=== PATIENT | male | born 1950 | race Caucasian/White ===

== ENCOUNTER → 2017-07-23 | Outpatient (CLI) | payer MEDICARE, OTHER ==
--- NOTE | 2017-07-23 12:20 | Diagnostic Imaging Report ---
PROCEDURE: CT chest without contrast. TECHNIQUE: Multiple contiguous axial images were obtained through the chest without the use of intravenous contrast. INDICATION: COPD, tobacco use. FINDINGS: The previous CT chest exam performed on 04/01/2016 noted emphysematous changes involving both lungs but failed to show any sign of an acute abnormality. The emphysematous changes are again evident and essentially no different. There is no sign of failure, pneumonia, or pleural effusion to indicate an acute abnormality. There are two small (2 mm) parenchymal opacities in the right mid lung (images 30 and 31 of 65). These findings are of uncertain etiology although most likely benign. In reviewing the previous exam, I feel they were present and have not changed significantly. There is no other parenchymal abnormality identified. The prior exam did note a 1.1 cm pretracheal lymph node. That finding is again evident on this study and now measures 0.9 cm. There is no other mediastinal or hilar adenopathy appreciated although this exam is limited in the evaluation of adenopathy due to the absence of intravenous contrast. The heart size is within normal limits. Coronary artery calcifications are evident. The aorta is not abnormally dilated. The thyroid gland where visualized is unremarkable. The sections through the upper abdomen fail to show any sign of an acute abnormality. The bone windows show no evidence for a fracture or for a destructive lesion. IMPRESSION: 1. The emphysematous changes involving both lungs seen on the prior study are again evident and no different. There is no sign of an acute cardiopulmonary abnormality. 2. The two small faint parenchymal opacities in the right mid lung are of uncertain etiology although most likely benign. A follow-up CT chest exam in one year would be recommended for continued evaluation. 3. The heart is not enlarged. There are coronary artery calcifications evident. Dictated by: Dictated on workstation # [id number]
== END ==
LOC: RAD 10:51
PROVIDERS: ATTEND Nurse Practitioner Family
DX: J43.9 Emphysema, unspecified (principal); E88.01 Alpha-1-antitrypsin deficiency; R59.0 Localized enlarged lymph nodes; Z72.0 Tobacco use
CPT/HCPCS: 71250

== ENCOUNTER 2017-09-01 09:11 | Outpatient (RCR) | payer MEDICARE, OTHER ==
[2017-09-30 13:53] VITALS: BP 117/70
[2017-09-30 14:58] VITALS: BP 118/80
[2017-10-02 14:50] VITALS: BP 110/64
[2017-10-02 16:00] VITALS: BP 120/60
[2017-10-07 15:00] VITALS: BP 120/60
[2017-10-07 16:00] VITALS: BP 130/70
[2017-10-09 13:45] VITALS: BP 102/77
[2017-10-09 15:00] VITALS: BP 115/67
[2017-10-14 14:50] VITALS: BP 130/60
[2017-10-14 16:02] VITALS: BP 116/60
[2017-10-23 15:00] VITALS: BP 118/80
[2017-10-23 16:00] VITALS: BP 118/50
[2017-10-28 14:35] VITALS: BP 140/70
[2017-10-30 15:00] VITALS: BP 97/64
[2017-10-30 15:55] VITALS: BP 120/77
[2017-11-04 15:00] VITALS: BP 114/66
[2017-11-04 15:57] VITALS: BP 130/60
[2017-11-11 15:00] VITALS: BP 120/84
[2017-11-11 15:41] VITALS: BP 120/58
[2017-11-13 15:00] VITALS: BP 122/74
[2017-11-13 16:00] VITALS: BP 122/74
[2017-11-20 15:00] VITALS: BP 120/60
[2017-11-20 15:34] VITALS: BP 150/60
[2017-11-25 14:50] VITALS: BP 118/60
[2017-11-25 15:49] VITALS: BP 120/60
[2017-11-27 14:52] VITALS: BP 115/60
[2017-12-02 15:00] VITALS: BP 104/65
[2017-12-02 16:00] VITALS: BP 125/60
== END 2017-11-30 | disposition home or self-care (01) ==
LOC: RT 09:11
PROVIDERS: ATTEND Internal Medicine Critical Care Medicine
DX: J44.9 Chronic obstructive pulmonary disease, unspecified (principal); R06.02 Shortness of breath; G47.36 Sleep related hypoventilation in conditions classified elsewhere; E66.9 Obesity, unspecified
CPT/HCPCS: 99211

== ENCOUNTER 2017-12-01 08:00 | Outpatient (RCR) | payer MEDICARE, OTHER ==
[2017-12-04 14:40] VITALS: BP 114/60
[2017-12-04 15:40] VITALS: BP 90/50
[2017-12-09 13:58] VITALS: BP 115/60
[2017-12-09 14:30] VITALS: BP 160/60
== END 2018-03-01 | disposition home or self-care (01) ==
LOC: PULM 08:00
PROVIDERS: ATTEND Internal Medicine Critical Care Medicine
DX: J44.9 Chronic obstructive pulmonary disease, unspecified (principal); R06.02 Shortness of breath; G47.36 Sleep related hypoventilation in conditions classified elsewhere; E66.9 Obesity, unspecified

== ENCOUNTER 2018-06-24 11:33 | Inpatient (IN) | payer MEDICARE, OTHER ==
[~2018-06-24] VITALS: Ht 167.6 cm; Wt 95.7 kg
[2018-06-24 11:48] VITALS: BP 116/73
--- NOTE | 2018-06-24 11:48 | NUR ---
NEETU CARRERO admitted to room 415-1, with an admitting diagnosis of COPD EXAC R/O PNEUMONIA, on 06/24/18 from [facility] , accompanied by STAFF/.NEETU CARRERO introduced to surroundings, call light, bed controls, phone, TV, temperature control, lights, meal times, smoking policy, visitor policy, side rail policy, bathrooms and showers. Patient Rights given to patient in the handbook. NEETU CARRERO verbalizes understanding that [facility] is not responsible for the loss or damage to any personal effects or valuables that are kept in the patients posession during their hospitalization. The following Patient Care Plans were discussed with the PT: Discharge Planning, IMPAIRED BREATHING PATTERN,INEFFECTIVE AIRWAY CLEARANCE, and IMPAIRED GAS EXCHANGE. NEETU CARRERO verbalizes understanding of Interdisciplinary Patient Education. Patient and family were informed about the Rapid Response Team and its purpose.
--- OUTSIDE RECORDS SUMMARY | 2018-06-24 12:55 | XMS REPORT | CCD ---
Author Author ASHLEY CRUZ Unknown Address [address] [facility] [address] [place], [place] [id number] Care Team Providers Care Tanyard Worker Name Role Phone VANESSA REID DO Leidy Attphys Vital Signs Vital Sign Value Unit Date/Time Recent/Initial? Weight Measured 188 lbs 12/01/2015 13:38 Initial VS Height 66 in 12/01/2015 13:38 Initial VS BMI (Body Mass Index) 30.02 kg/m^2 12/01/2015 13:38 Initial VS BSA (Body Surface Area) 1.99 m^2 12/01/2015 13:38 Initial VS Allergies Allergy Code Allergy Type Reaction Status No Known Allergies 0 No known allergies Active Procedures Procedure Code Procedure Type Date Destruction, premalignant lesions; first lesion 61559 CPT 12/04/2015 Destruction, premalignant lesions; second through 14 lesions, each 44379 CPT 12/04/2015 Destruction, premalignant lesions; second through 14 lesions, each 99358 CPT 12/04/2015 Destruction, premalignant lesions; second through 14 lesions, each 72564 CPT 12/04/2015 Destruction, premalignant lesions; second through 14 lesions, each 21935 CPT 12/04/2015 Esophagogastroduodenoscopy, flexible, transoral; [place] [address] CPT 12/04/2015 Colsc flx w/rmvl of tumor polyp lesion snare tq; [place] [address] CPT 12/04/2015 PATHOLOGY ORDER [id number] SNOMED CT 12/04/2015 History of Immunizations Unknown or Not Available. Problems Problem Code Start Date Resolved Date Status PNEUMONIA 486 Active PYELONEPHRITIS [id number] Active Results Unknown or Not Available. Active Medications No Active Medications Medications Administered During Visit Unknown or Not Available. Encounters Encounter Diagnosis Diagnosis Code Start Date Encounter for screening for malignant neoplasm of colon Z1211 Social History Smoking Status Code Start Date End Date Current every day smoker [id number] Patient Decision Aids Patient Decision Aid EGD AND/OR COLONOSCOPY; AFTER THE PROCEDURE Discharge Instructions You were admitted to [facility] on 12/04/2015 07:00 with a principal diagnosis of Encounter for screening for malignant neoplasm of colon You had the following procedures done: Destruction, premalignant lesions; first lesion Destruction, premalignant lesions; second through 14 lesions, each Destruction, premalignant lesions; second through 14 lesions, each Destruction, premalignant lesions; second through 14 lesions, each Destruction, premalignant lesions; second through 14 lesions, each Esophagogastroduodenoscopy, flexible, transoral; with biopsy, single or mu Colsc flx w/rmvl of tumor polyp lesion snare tq; (-PT Clrctal screen to di You were discharged from [facility] on 12/04/2015 10:40 Should you have any questions prior to discharge, please contact a member of your healthcare team. If you have left the hospital and have any questions, please contact your primary care physician. Chief Complaint and Reason For Visit Chief Complaint Date of Onset GEN EGD CSCOPE Function Status Unknown or Not Available. Plan of Care Unknown or Not Available. Referral/Transition of Care Unknown or Not Available.
--- OUTSIDE RECORDS SUMMARY | 2018-06-24 12:56 | XMS REPORT | Continuity of Care Document ---
Author Author [facility] Organization [facility] Address Unknown Phone Unavailable Allergies Active Description Code Type Severity Reaction Onset Reported/Identified Relationship to Patient Clinical Status Yes No Known Allergies [id number] N /A N/A Yes No Allergy Information Available [id number] Drug Allergy Unknown N/A 2015 Medications There is no data. Problems Date Dx Coded Attending Type Code Diagnosis Diagnosed By 10/12/2015 DIOR MORGAN DO, Ot E88.01 [id number]-2-[id number] DEFICIENCY 10/12/2015 DIOR MORGAN DO Ot J44.9 CHRONIC OBSTRUCTIVE PULMONARY DISEASE, U 10/12/2015 DIOR MORGAN DO Ot Z72.0 TOBACCO USE 10/16/2015 MARTIN ZHENG LAND INSPECTOR Ot G47.10 HYPERSOMNIA, UNSPECIFIED 10/16/2015 MARTIN ZHENG LAND INSPECTOR Ot G47.33 OBSTRUCTIVE SLEEP APNEA (ADULT) (PEDIATR 10/17/2015 ADRIENNE ZHENGINE E LAND INSPECTOR Ot G47.10 HYPERSOMNIA, UNSPECIFIED 10/17/2015 NORMADRIENNEMARTIN E LAND INSPECTOR Ot G47.33 OBSTRUCTIVE SLEEP APNEA (ADULT) (PEDIATR 10/17/2015 MARTIN ZHENG LAND INSPECTOR Ot G47.36 SLEEP RELATED HYPOVENTILATION IN CONDITI 10/17/2015 MARTIN ZHENG LAND INSPECTOR Ot G47.61 PERIODIC LIMB MOVEMENT DISORDER 10/17/2015 MARTIN ZHENG LAND INSPECTOR Ot G47.9 SLEEP DISORDER, UNSPECIFIED 10/17/2015 MARTIN ZHENG LAND INSPECTOR Ot R06.83 SNORING 11/02/2015 MARTIN ZHENG LAND INSPECTOR Ot G47.36 SLEEP RELATED HYPOVENTILATION IN CONDITI 11/02/2015 MARTIN ZHENG LAND INSPECTOR Ot G47.61 PERIODIC LIMB MOVEMENT DISORDER 11/02/2015 MARTIN ZHENG LAND INSPECTOR Ot R06.83 SNORING 04/01/2016 DIOR MORGAN DO Ot E88.01 TWLVB-3-CJGCAGTHPPG DEFICIENCY 04/01/2016 DIOR MORGAN DO Ot J44.9 CHRONIC OBSTRUCTIVE PULMONARY DISEASE, U 04/01/2016 DIOR MORGAN DO Ot Z72.0 TOBACCO USE 04/01/2016 DIOR MORGAN DO Ot E88.01 LLWTI-7-ZTEIAEAWMZH DEFICIENCY 04/01/2016 DIOR MORGAN DO Ot J44.9 CHRONIC OBSTRUCTIVE PULMONARY DISEASE, U 04/01/2016 DIOR MORGAN DO Ot Z72.0 TOBACCO USE 04/01/2016 MARTIN ZHENG LAND INSPECTOR Ot J44.9 CHRONIC OBSTRUCTIVE PULMONARY DISEASE, U 04/01/2016 MARTIN ZHENG LAND INSPECTOR Ot J44.9 CHRONIC OBSTRUCTIVE PULMONARY DISEASE, U 04/01/2016 MARTIN ZHENG LAND INSPECTOR Ot J44.9 CHRONIC OBSTRUCTIVE PULMONARY DISEASE, U 04/02/2016 MARTIN ZHENG LAND INSPECTOR Ot J44.9 CHRONIC OBSTRUCTIVE PULMONARY DISEASE, U 04/02/2016 MARTIN ZHENG LAND INSPECTOR Ot J44.9 CHRONIC OBSTRUCTIVE PULMONARY DISEASE, U 04/02/2016 MARTIN ZHENG LAND INSPECTOR Ot R93.8 ABNORMAL FINDINGS ON DIAGNOSTIC IMAGING 04/02/2016 MARTIN ZHENG LAND INSPECTOR Ot Z72.0 TOBACCO USE 04/07/2016 MARTIN ZHENG LAND INSPECTOR Ot J44.9 CHRONIC OBSTRUCTIVE PULMONARY DISEASE, U 04/07/2016 MARTIN ZHENG LAND INSPECTOR Ot R93.8 ABNORMAL FINDINGS ON DIAGNOSTIC IMAGING 04/07/2016 MARTIN ZHENG LAND INSPECTOR Ot Z72.0 TOBACCO USE 04/23/2016 MARTIN ZHENG LAND INSPECTOR Ot J44.9 CHRONIC OBSTRUCTIVE PULMONARY DISEASE, U 04/23/2016 MARTIN ZHENG LAND INSPECTOR Ot R93.8 ABNORMAL FINDINGS ON DIAGNOSTIC IMAGING 04/23/2016 MARTIN ZHENG LAND INSPECTOR Ot Z72.0 TOBACCO USE 07/24/2017 MARTIN ZHENG LAND INSPECTOR Ot E88.01 UIWMJ-9-RPBRVQIFWGA DEFICIENCY 07/24/2017 MARTIN ZHENG LAND INSPECTOR Ot J43.9 EMPHYSEMA, UNSPECIFIED 07/24/2017 MARTIN ZHENG LAND INSPECTOR Ot R59.0 LOCALIZED ENLARGED LYMPH NODES 07/24/2017 MARTIN ZHENG LAND INSPECTOR Ot Z72.0 TOBACCO USE 08/08/2017 MARTIN ZHENG LAND INSPECTOR Ot E88.01 SSXZB-3-KQIQWULYGOT DEFICIENCY 08/08/2017 MARTIN ZHENG LAND INSPECTOR Ot J43.9 EMPHYSEMA, UNSPECIFIED 08/08/2017 MARTIN ZHENG LAND INSPECTOR Ot R59.0 LOCALIZED ENLARGED LYMPH NODES 08/08/2017 MARTIN ZHENG LAND INSPECTOR Ot Z72.0 TOBACCO USE 08/18/2017 DIOR MORGAN DO Ot E88.01 LPNLX-6-DJKNPSAPTUQ DEFICIENCY 08/18/2017 DIOR MORGAN DO Ot J44.9 CHRONIC OBSTRUCTIVE PULMONARY DISEASE, U 08/18/2017 DIOR MORGAN DO Ot Z72.0 TOBACCO USE 08/18/2017 MARTIN ZHENG APRN Ot J44.9 CHRONIC OBSTRUCTIVE PULMONARY DISEASE, U 08/18/2017 MARTIN ZHENG LAND INSPECTOR Ot R93.8 ABNORMAL FINDINGS ON DIAGNOSTIC IMAGING 08/18/2017 MARTIN ZHENG LAND INSPECTOR Ot Z72.0 TOBACCO USE 08/18/2017 MARTIN ZHENG LAND INSPECTOR Ot E88.01 NSPYM-8-XWOJPGBXTQG DEFICIENCY 08/18/2017 MARTIN ZHENG LAND INSPECTOR Ot J43.9 EMPHYSEMA, UNSPECIFIED 08/18/2017 MARTIN ZHENG APRN Ot R59.0 LOCALIZED ENLARGED LYMPH NODES 08/18/2017 MARTIN ZHENG LAND INSPECTOR Ot Z72.0 TOBACCO USE 10/02/2017 DIOR MORGAN DO Ot E66.9 OBESITY, UNSPECIFIED 10/02/2017 DIOR MORGAN DO Ot G47.36 SLEEP RELATED HYPOVENTILATION IN CONDITI 10/02/2017 DIOR MORGAN DO Ot J44.9 CHRONIC OBSTRUCTIVE PULMONARY DISEASE, U 10/02/2017 DIOR MORGAN DO Ot R06.02 SHORTNESS OF BREATH 10/07/2017 DIOR MORGAN DO Ot E66.9 OBESITY, UNSPECIFIED 10/07/2017 DIOR MORGAN DO Ot G47.36 SLEEP RELATED HYPOVENTILATION IN CONDITI 10/07/2017 DIOR MORGAN DO Ot J44.9 CHRONIC OBSTRUCTIVE PULMONARY DISEASE, U 10/07/2017 DIOR MORGAN DO Ot R06.02 SHORTNESS OF BREATH 10/08/2017 CATHY DODIOR Ot E66.9 OBESITY, UNSPECIFIED 10/08/2017 DIOR MORGAN DO M Ot G47.36 SLEEP RELATED HYPOVENTILATION IN CONDITI 10/08/2017 CATHY DODIOR Ot J44.9 CHRONIC OBSTRUCTIVE PULMONARY DISEASE, U 10/08/2017 CATHY DODIOR M Ot R06.02 SHORTNESS OF BREATH 10/09/2017 CATHY DODIOR M Ot E66.9 OBESITY, UNSPECIFIED 10/09/2017 CATHY DODIOR M Ot G47.36 SLEEP RELATED HYPOVENTILATION IN CONDITI 10/09/2017 DIOR MORGAN DO Ot J44.9 CHRONIC OBSTRUCTIVE PULMONARY DISEASE, U 10/09/2017 DIOR MORGAN DO Ot R06.02 SHORTNESS OF BREATH 10/14/2017 DIOR MORGAN DO M Ot E66.9 OBESITY, UNSPECIFIED 10/14/2017 DIOR MORGAN DO M Ot G47.36 SLEEP RELATED HYPOVENTILATION IN CONDITI 10/14/2017 DIOR MORGAN DO Ot J44.9 CHRONIC OBSTRUCTIVE PULMONARY DISEASE, U 10/14/2017 CATHY DODIOR M Ot R06.02 SHORTNESS OF BREATH 10/23/2017 DIOR MORGAN DO M Ot E66.9 OBESITY, UNSPECIFIED 10/23/2017 CATHY DODIOR M Ot G47.36 SLEEP RELATED HYPOVENTILATION IN CONDITI 10/23/2017 DIOR MORGAN DO M Ot J44.9 CHRONIC OBSTRUCTIVE PULMONARY DISEASE, U 10/23/2017 DIOR MORGAN DO M Ot R06.02 SHORTNESS OF BREATH 10/28/2017 CATHY DODIOR M Ot E66.9 OBESITY, UNSPECIFIED 10/28/2017 CATHY DODIOR M Ot G47.36 SLEEP RELATED HYPOVENTILATION IN CONDITI 10/28/2017 CATHY DODIOR M Ot J44.9 CHRONIC OBSTRUCTIVE PULMONARY DISEASE, U 10/28/2017 CATHY DODIOR M Ot R06.02 SHORTNESS OF BREATH 10/30/2017 CATHY DODIOR M Ot E66.9 OBESITY, UNSPECIFIED 10/30/2017 CATHY DODIOR M Ot G47.36 SLEEP RELATED HYPOVENTILATION IN CONDITI 10/30/2017 DIOR MORGAN DO Ot J44.9 CHRONIC OBSTRUCTIVE PULMONARY DISEASE, U 10/30/2017 DIOR MORGAN DO Ot R06.02 SHORTNESS OF BREATH 10/30/2017 DIOR MORGAN DO Ot E66.9 OBESITY, UNSPECIFIED 10/30/2017 DIOR MORGAN DO Ot G47.36 SLEEP RELATED HYPOVENTILATION IN CONDITI 10/30/2017 DIOR MORGAN DO Ot J44.9 CHRONIC OBSTRUCTIVE PULMONARY DISEASE, U 10/30/2017 CATHY DODIOR M Ot R06.02 SHORTNESS OF BREATH 11/04/2017 DIOR MORGAN DO Ot E66.9 OBESITY, UNSPECIFIED 11/04/2017 DIOR MORGAN DO Ot G47.36 SLEEP RELATED HYPOVENTILATION IN CONDITI 11/04/2017 DIOR MORGAN DO Ot J44.9 CHRONIC OBSTRUCTIVE PULMONARY DISEASE, U 11/04/2017 DIOR MORGAN DO Ot R06.02 SHORTNESS OF BREATH 11/11/2017 DIOR MORGAN DO Ot E66.9 OBESITY, UNSPECIFIED 11/11/2017 DIOR MORGAN DO M Ot G47.36 SLEEP RELATED HYPOVENTILATION IN CONDITI 11/11/2017 DIOR MORGAN DO Ot J44.9 CHRONIC OBSTRUCTIVE PULMONARY DISEASE, U 11/11/2017 DIOR MORGAN DO Ot R06.02 SHORTNESS OF BREATH 11/13/2017 DIOR MORGAN DO Ot E66.9 OBESITY, UNSPECIFIED 11/13/2017 DIOR MORGAN DO M Ot G47.36 SLEEP RELATED HYPOVENTILATION IN CONDITI 11/13/2017 DIOR MORGAN DO Ot J44.9 CHRONIC OBSTRUCTIVE PULMONARY DISEASE, U 11/13/2017 CATHY DODIOR M Ot R06.02 SHORTNESS OF BREATH 11/20/2017 DIOR MORGAN DO M Ot E66.9 OBESITY, UNSPECIFIED 11/20/2017 DIOR MORGAN DO M Ot G47.36 SLEEP RELATED HYPOVENTILATION IN CONDITI 11/20/2017 DIOR MORGAN DO Ot J44.9 CHRONIC OBSTRUCTIVE PULMONARY DISEASE, U 11/20/2017 DIOR MORGAN DO M Ot R06.02 SHORTNESS OF BREATH 11/25/2017 DIOR MORGAN DO M Ot E66.9 OBESITY, UNSPECIFIED 11/25/2017 CATHY DODIOR M Ot G47.36 SLEEP RELATED HYPOVENTILATION IN CONDITI 11/25/2017 CATHY DODIOR Ot J44.9 CHRONIC OBSTRUCTIVE PULMONARY DISEASE, U 11/25/2017 CATHY DODIOR M Ot R06.02 SHORTNESS OF BREATH 11/27/2017 CATHY DODIOR M Ot E66.9 OBESITY, UNSPECIFIED 11/27/2017 CATHY DODIOR M Ot G47.36 SLEEP RELATED HYPOVENTILATION IN CONDITI 11/27/2017 CATHY DODIOR Ot J44.9 CHRONIC OBSTRUCTIVE PULMONARY DISEASE, U 11/27/2017 DIOR MORGAN DO M Ot R06.02 SHORTNESS OF BREATH 11/30/2017 CATHY DODIOR M Ot E66.9 OBESITY, UNSPECIFIED 11/30/2017 CATHY DODIOR M Ot G47.36 SLEEP RELATED HYPOVENTILATION IN CONDITI 11/30/2017 DIOR MORGAN DO Ot J44.9 CHRONIC OBSTRUCTIVE PULMONARY DISEASE, U 11/30/2017 CATHY DODIOR M Ot R06.02 SHORTNESS OF BREATH 12/03/2017 CATHY DODIOR M Ot E66.9 OBESITY, UNSPECIFIED 12/03/2017 CATHY DODIOR M Ot G47.36 SLEEP RELATED HYPOVENTILATION IN CONDITI 12/03/2017 DIOR MORGAN DO M Ot J44.9 CHRONIC OBSTRUCTIVE PULMONARY DISEASE, U 12/03/2017 DIOR MORGAN DO M Ot R06.02 SHORTNESS OF BREATH 12/04/2017 CATHY DODIOR M Ot E66.9 OBESITY, UNSPECIFIED 12/04/2017 CATHY DODIOR M Ot G47.36 SLEEP RELATED HYPOVENTILATION IN CONDITI 12/04/2017 CATHY DODIOR M Ot J44.9 CHRONIC OBSTRUCTIVE PULMONARY DISEASE, U 12/04/2017 CATHY DODIOR M Ot R06.02 SHORTNESS OF BREATH 12/09/2017 CATHY DODIOR M Ot E66.9 OBESITY, UNSPECIFIED 12/09/2017 CATHY DODIOR M Ot G47.36 SLEEP RELATED HYPOVENTILATION IN CONDITI 12/09/2017 CATHY DODIOR M Ot J44.9 CHRONIC OBSTRUCTIVE PULMONARY DISEASE, U 12/09/2017 DIOR MORGAN DO M Ot R06.02 SHORTNESS OF BREATH 01/04/2018 CATHY DODIOR M Ot E66.9 OBESITY, UNSPECIFIED 01/04/2018 CATHY DOKAISERDIOR M Ot G47.36 SLEEP RELATED HYPOVENTILATION IN CONDITI 01/04/2018 DIOR MORGAN DO M Ot J44.9 CHRONIC OBSTRUCTIVE PULMONARY DISEASE, U 01/04/2018 DIOR MORGAN DO M Ot R06.02 SHORTNESS OF BREATH 03/01/2018 CATHY DODIOR M Ot E66.9 OBESITY, UNSPECIFIED 03/01/2018 CATHY DODIOR M Ot G47.36 SLEEP RELATED HYPOVENTILATION IN CONDITI 03/01/2018 DIOR MORGAN DO M Ot J44.9 CHRONIC OBSTRUCTIVE PULMONARY DISEASE, U 03/01/2018 DIOR MORGAN DO M Ot R06.02 SHORTNESS OF BREATH 03/03/2018 DIOR MORGAN DO M Ot E66.9 OBESITY, UNSPECIFIED 03/03/2018 KAISER MORGAN DOSON M Ot G47.36 SLEEP RELATED HYPOVENTILATION IN CONDITI 03/03/2018 DIOR MORGAN DO M Ot J44.9 CHRONIC OBSTRUCTIVE PULMONARY DISEASE, U 03/03/2018 DIOR MORGAN DO M Ot R06.02 SHORTNESS OF BREATH 03/10/2018 MARTIN ZHENG APRN Ot E88.01 IAJVH-2-HCEZLGOLZMO DEFICIENCY 03/10/2018 MARTIN ZHENG APRN Ot J43.9 EMPHYSEMA, UNSPECIFIED 03/10/2018 MARTIN ZHENG APRN Ot R59.0 LOCALIZED ENLARGED LYMPH NODES 03/10/2018 MARTIN ZHENG APRN Ot Z72.0 TOBACCO USE Procedures There is no data. Results Test Result Range [id number] - 04/01/16 10:48 Serum or plasma urea nitrogen measurement (mass/volume) 14 mg/dL 7-18 Serum or plasma creatinine measurement (mass/volume) 1.06 mg/dL 0.60-1.30 Serum or plasma urea nitrogen/creatinine mass ratio 13 NRG Serum or plasma creatinine measurement with calculation of estimated glomerular filtration rate > NRG Encounters ACCT No. Visit Date/Time Discharge Status Pt. Type Provider Facility Loc./Unit Complaint [id number] 03/02/2018 00:08:00 03/02/2018 23:59:59 CLS Preadmit CATHY DOBSON DIOR M [facility] PULM J44.9 [id number] 12/01/2017 08:00:00 03/01/2018 00:01:00 DIS Outpatient DIOR MORGAN DO [facility] PULM J44.9 [id number] 09/01/2017 09:11:00 11/30/2017 00:01:00 DIS Outpatient DIOR MORGAN DO [facility] PULM J44.9 [id number] 07/31/2017 11:33:00 07/31/2017 23:59:59 CLS Preadmit DIOR MORGAN DO [facility] RAD J44.9 [id number] 07/23/2017 10:51:00 07/23/2017 23:59:59 CLS Outpatient MARTIN ZHENG APRN [facility] RAD COPD,TOBACCO USER [id number] 04/01/2016 10:39:00 04/01/2016 23:59:59 CLS Outpatient MARTIN ZHENG LAND INSPECTOR [facility] RAD COPD,TOBACCO USER, ABNORMAL CT [id number] 10/16/2015 21:29:00 10/17/2015 06:00:00 DIS Outpatient MARTIN ZHENG APRN [facility] SLEEP BERNADETTE,SNORING, HYPERSOMNIA,MORNING HEADACHE [id number] 09/22/2015 13:00:00 09/22/2015 23:59:59 CLS Outpatient DIOR MORGAN DO [facility] RAD SOA,DYSPNEA,COPD [id number] 04/03/2018 01:50:01 Document Registration [id number] 03/20/2018 08:36:37 Document Registration [id number] 03/12/2018 16:37:22 Document Registration [id number] 03/11/2018 15:46:02 Document Registration [id number] 01/07/2018 15:42:26 Document Registration [id number] 01/07/2018 08:43:18 Document Registration [id number] 12/15/2017 14:48:21 Document Registration
[2018-06-24] MEDS ORDERED: NS IV 1000 ML 1,000 ML ONE (13:12)
[2018-06-24] MEDS ORDERED: CATHETER FLUSH 10 ML SYR IV PRN (13:30)
[2018-06-24] MEDS ORDERED: FLU QUADRIvalent (5+ YOA) 2018-2019 (AFLURIA) 0.5 ML IM ONE (13:30)
--- NOTE | 2018-06-24 13:55 | History & Physical-Hospitalist ---
ALLYN BROWNE DO 06/24/18 1355: History of Present Illness HPI/Chief Complaint CC: Dyspnea HPI: This is a 67-year-old white male that was seen as a new patient by Dr. Diaz's office that was found to have severe acute exacerbation of COPD in need of hospitalization with IV steroids nebulizer treatments and oxygen supplementation. Apparently he had completed 2 rounds of antibiotics of Rocephin and Levaquin and injection of steroids and pills of steroids but continued to worsen. He reports that he has not been feeling well for the past 3 months. He is upset with his for forcing him to come into the hospital. Overall he understands the plan for oxygen supplementation and likely will need to go home on oxygen. Smoking cessation was counseled. Source: patient, family Date Seen 06/24/18 Time Seen by a Provider: 14:15 Attending Physician Allyn Browne DO PCP Gamaliel Hubbard MD Referring Physician Date of Admission Jun 24, 2018 at 11:48 Home Medications & Allergies Home Medications Reviewed patient Home Medication Reconciliation performed by pharmacy medication reconciliations smog technician and/or nursing. Patients Allergies have been reviewed. Allergies Allergies Coded Allergies No Known Drug Allergies (Unverified06/24/18) Past Mklymsa-Swnqgk-Udvkzh Hx Past Med/Social Hx: Reviewed Nursing Past Med/Soc Hx, Reviewed and Corrections made Patient Social History Marrital Status: Employed/Student: retired (sandblaster) Alcohol Use: Occasionally Uses Number of Drinks Today: 0 Alcohol Beverage of Choice: Whiskey Recreational Drug Use: No Smoking Status: Current Everyday Smoker Type Used: Cigarettes Physical Abuse Screen: No Sexual Abuse: No Recent Foreign Travel: No Contact w/other who traveled: No Recent Hopitalizations: No Recent Infectious Disease Expo: No Seasonal Allergies Seasonal Allergies: Yes Past Medical History Respiratory: COPD Currently Using CPAP: No Currently Using BIPAP: No Gastrointestinal: Abdominal Hernia History of Blood Disorders: No Family History Dementia 19 MOTHER Neoplasm 19 FATHER Review of Systems Constitutional: see HPI, weakness EENTM: no symptoms reported Respiratory: cough, dyspnea on exertion, short of breath Cardiovascular: no symptoms reported Gastrointestinal: no symptoms reported Genitourinary: no symptoms reported Musculoskeletal: no symptoms reported Skin: no symptoms reported Psychiatric/Neurological: No Symptoms Reported All Other Systems Reviewed Negative Unless Noted: Yes Physical Exam Physical Exam Vital Signs Vital Signs - First Documented 06/24/18 06/24/18 11:48 14:18 Temp 98.6 Pulse 97 Resp 22 B/P (MAP) 116/73 (87) Pulse Ox 95 O2 Delivery Room Air O2 Flow Rate 2.00 Capillary Refill : Height, Weight, BMI Height: 5'6.00" Weight: 198lbs. 4.0oz. [id number]; 32.0 BMI Method: General Appearance: WD/WN, Anxious, Chronically ill, Mild Distress Eyes: Bilateral Eye Normal Inspection, Bilateral Eye PERRL HEENT: PERRL/EOMI, Normal ENT Inspection, Pharynx Normal Neck: Full Range of Motion, Normal Inspection, Non Tender, Supple, Carotid Bruit Respiratory: Chest Non Tender, Accessory Muscle Use, Crackles, Decreased Breath Sounds, Respiratory Distress (mild), Wheezing (diffuse expiratory) Cardiovascular: Regular Rate, Rhythm, No Edema, No Gallop, No JVD, No Murmur, Normal Peripheral Pulses Gastrointestinal: Normal Bowel Sounds, No Organomegaly, No Pulsatile Mass, Non Tender, Soft Back: Normal Inspection, No CVA Tenderness, No Vertebral Tenderness Extremity: Normal Capillary Refill, Normal Inspection, Normal Range of Motion, Non Tender, No Calf Tenderness, No Pedal Edema Neurologic/Psychiatric: Alert, Oriented x3, No Motor/Sensory Deficits, Normal Mood/Affect Skin: Normal Color, Warm/Dry Lymphatic: No Adenopathy Results Results/Procedures Labs Laboratory Tests 06/24/18 13:50 Patient resulted labs reviewed. Assessment/Plan Admission Diagnosis Assessment: Acute exacerbation of COPD new onset Current smoker Appears to be at risk for obstructive sleep apnea Plan: Pulmonary meds Oxygen Admission Status: Inpatient Order (span 2 midnights) Reason for Inpatient Admission: AECOPD will require 3 days of IV steroids and home O2 Diagnosis/Problems Diagnosis/Problems (1) COPD exacerbation Status: Acute (2) Smoker Status: Chronic Clinical Quality Measures DVT/VTE Risk/Contraindication: Risk Factor Score Per Nursin RFS Level Per Nursing on Admit: 4+=Very High BRENDAN HORNE MEDICAL STUDENT 06/24/18 1403: History of Present Illness HPI/Chief Complaint CC: SOB HPI: 67 year old male with Hx of COPD admitted for SOB. Pt states that he was Dx with PNA 6-8 weeks ago by his PCP, given Levaquin, Rocephin IM, and IM steroid shot. Pt states he has continued to feel short of breath since then. Pt states that he has had dyspnea on exertion over the last 3 months that has been worsening and now he is unable to walk to the bathroom without becoming SOB. Pt states that he also has a cough that is worse in the morning and evening and sometimes he has episodes of coghing that leads to him passing out for a minute. Pt states his legs have also felt warm. Pt states that his resting heart rate has been ~100-105 over the last couple weeks. Pt states he has been taking breathing treatments 4-5x a day and says it helps a little bit. Source: patient, family Time Seen by a Provider: 13:45 Past Fkblgur-Xpdzeu-Mxjxev Hx Patient Social History Marrital Status: Family History Dementia 19 MOTHER Neoplasm 19 FATHER Review of Systems Constitutional: see HPI; No chills, No fever EENTM: see HPI Respiratory: cough, dyspnea on exertion, short of breath Cardiovascular: No chest pain Gastrointestinal: No abdominal pain, No diarrhea, No nausea, No vomiting Musculoskeletal: no symptoms reported Psychiatric/Neurological: No Symptoms Reported Physical Exam Physical Exam General Appearance: WD/WN, Mild Distress Eyes: Bilateral Eye EOMI HEENT: PERRL/EOMI Respiratory: Respiratory Distress (mild), Wheezing (diffuse expiratory) Cardiovascular: Tachycardia Gastrointestinal: Non Tender, Soft Neurologic/Psychiatric: Alert, Oriented x3, Normal Mood/Affect Assessment/Plan Admission Diagnosis Admission Status: Inpatient Order (span 2 midnights) Reason for Inpatient Admission: PNA Assessment and Plan Assessment PNA AECOPD DVT Tobacco use failed outpt therapy hypoxia History of HLD Plan CXR IV Abx IV Steroids US LE to check for DVT smoking cessation O2 Pulmonology consult ALLYN BROWNE DO Jun 24, 2018 13:55 BRENDAN HORNE MEDICAL STUDENT Jun 24, 2018 14:03
[2018-06-24 14:05] LABS: BASOPHILS % (AUTO) 1 % (0-10); EOSINOPHILS # (AUTO) 0.3 10^3/uL (0.0-0.3); EOSINOPHILS % (AUTO) 5 % (0-10); HEMATOCRIT 42 % (40-54); HEMOGLOBIN 13.7 G/DL (13.3-17.7); LYMPHOCYTES # (AUTO) 1.8 X 10^3 (1.0-4.0); LYMPHOCYTES % (AUTO) 28 % (12-44); MEAN CORPUSCULAR HEMOGLOBIN 30 PG (25-34); MEAN CORPUSCULAR HGB CONC 33 G/DL (32-36); MEAN CORPUSCULAR VOLUME 92 FL (80-99); MONOCYTES # (AUTO) 0.6 X 10^3 (0.0-1.0); MONOCYTES % (AUTO) 10 % (0-12); NEUTROPHILS # (AUTO) 3.7 X 10^3 (1.8-7.8); NEUTROPHILS % (AUTO) 57 % (42-75); PLATELET COUNT 187 10^3/uL (130-400); RED BLOOD COUNT 4.55 10^6/uL (4.35-5.85); RED CELL DISTRIBUTION WIDTH 13.3 % (10.0-14.5); WHITE BLOOD COUNT 6.6 10^3/uL (4.3-11.0)
[2018-06-24] MEDS: RT-ALBUTEROL/IPRATROPIUM 3 ML (DUONEB) VIAL IH SCH ×3 (14:17→22:45)
--- NOTE | 2018-06-24 14:17 | Diagnostic Imaging Report ---
INDICATION: Recent pneumonia and COPD. TIME OF EXAM: 1:40 PM COMPARISON: No prior chest radiographs are available for comparison. FINDINGS: The lungs are hyperinflated consistent with COPD. There is some linear atelectasis or scarring in the right base. Otherwise the lungs are clear. No effusion or pneumothorax is detected. IMPRESSION: COPD with right basilar scarring/subsegmental atelectasis. Dictated by: Dictated on workstation # [id number]
[2018-06-24 14:21] LABS: ABG OXYGEN SATURATION 97 % (94-100); ABG PCO2 47 MMHG (35-45); ABG PH 7.37 (7.37-7.43); ABG PO2 87 MMHG (79-93); ABG TCO2 28.2 MMOL/L (21.0-31.0)
[2018-06-24 14:22] LABS: ALLENS TEST YES-POS; INSPIRED O2 2L; PATIENT TEMP 98.6; VENTILATOR NO
[2018-06-24 14:23] LABS: ALBUMIN 4.1 GM/DL (3.2-4.5); BILIRUBIN,TOTAL 0.4 MG/DL (0.1-1.0); CALCIUM 9.1 MG/DL (8.5-10.1); CREATININE SERUM 1.24 MG/DL (0.60-1.30); POTASSIUM 4.3 MMOL/L (3.6-5.0); TOTAL PROTEIN 6.8 GM/DL (6.4-8.2)
[2018-06-24] MEDS: ENOXAPARIN 40 MG/0.4 ML (LOVENOX) SYR SC SCH (14:24)
[2018-06-24] MEDS: NS IV 1000 ML 1,000 ML IV SCH ×2 (14:24→22:07)
[2018-06-24] MEDS ORDERED: IOHEXOL 350 MG/ML 100 ML (OMNIPAQUE 350) VIAL IV ONE (15:00)
[2018-06-24] MEDS ORDERED: NS 250 ML (IVPB) BAG IV ONE (15:00)
[2018-06-24] MEDS ORDERED: RECEIVED CONTRAST (Hold Metformin) IV SCH (15:00)
[2018-06-24] MEDS ORDERED: BETA1TAB15 PO (15:15)
[2018-06-24] MEDS ORDERED: BUDE0.256 NEB (15:15)
[2018-06-24] MEDS ORDERED: ASPI-983 PO (15:15)
[2018-06-24] MEDS ORDERED: ALBU18HF2 INH (15:15)
[2018-06-24] MEDS ORDERED: LORA10TA7 PO (15:15)
[2018-06-24] MEDS ORDERED: IPRA3AMP31 NEB (15:15)
[2018-06-24] MEDS ORDERED: ARFO15VI3 NEB (15:15)
--- NOTE | 2018-06-24 15:17 | NUR ---
PATIENT LISTED HIS MEDICATIONS TO ME AND HOW HE TAKES THEM. SOME OF HIS NEBULIZER SOLUTIONS HAVE NOT BEEN FILLED RECENTLY ACCORDING TO THE EXT MED HX HOWEVER HE STATES THEY PUT IT ON AUTO REFILL AND SO HE HAD AN ABUNDANCE ON HAND AT HOME AND HAS BEEN USING THAT SUPPLY UP BEFORE ORDERING MORE REFILLS. HE TAKES ASPIRIN 81MG HS, PRESERVISION HS, AND LORATADINE HS OTC.
[2018-06-24 16:00] VITALS: BP 138/69
--- NOTE | 2018-06-24 16:06 | Diagnostic Imaging Report ---
PROCEDURE: CT chest with contrast only. TECHNIQUE: Multiple contiguous axial images were obtained through the chest after administration of intravenous contrast. INDICATION: Shortness of breath and COPD. Correlation is made with prior CT chest from 07/23/2017. FINDINGS: No axillary lymphadenopathy is seen. A right paratracheal node or two adjacent nodes again noted with short axis measurement of approximately 10 mm, similar to prior exam. No definite hilar lymphadenopathy is identified. No pericardial or pleural fluid is detected. Parenchymal evaluation again demonstrates emphysematous changes throughout both lungs. The central airways appear to be patent. Two tiny vague nodular densities in the right mid lung adjacent to the fissure, image 34 appear to be stable when compared with examination one year earlier. Remainder of the lung rowe is clear. No new mass is seen. Upper abdomen is unremarkable. IMPRESSION: Stable CT chest when compared with examination from 07/23/2017. Dictated by: Dictated on workstation # [id number]
--- NOTE | 2018-06-24 16:24 | Diagnostic Imaging Report ---
INDICATION: Shortness of breath. Bilateral lower extremity venous Doppler study was performed in the routine fashion with color flow Doppler and waveform analysis. FINDINGS: The common femoral veins, superficial femoral veins, popliteal veins and visualized portion of the tibial veins show normal compressibility and venous flow patterns. There is normal augmentation. A small 2.5 x 0.7 cm Isabel's cyst is visualized in the left popliteal fossa. IMPRESSION: No evidence of deep vein thrombosis in the major veins of both legs. Dictated by: Dictated on workstation # [id number]
[2018-06-24] MEDS ORDERED: HYDROcodone/APAP 5 MG/325 MG (LORTAB) TAB PO PRN (17:15)
[2018-06-24] MEDS ORDERED: DOCUSATE SODIUM 100 MG (COLACE) CAP PO PRN (17:15)
[2018-06-24] MEDS ORDERED: ACETAMINOPHEN 500 MG TAB (TYLENOL) PO PRN (17:15)
[2018-06-24] MEDS ORDERED: RT-ALBUTEROL/IPRATROPIUM 3 ML (DUONEB) VIAL INH PRN (17:15)
[2018-06-24] MEDS ORDERED: CALCIUM CARBONATE 500 MG (TUMS) TAB.CHEW PO PRN (17:15)
[2018-06-24] MEDS ORDERED: ALPRAZolam 0.25 MG (XANAX) TAB PO PRN (17:15)
[2018-06-24] MEDS ORDERED: MELATONIN 3 MG TABLET PO PRN (17:15)
[2018-06-24] MEDS ORDERED: guaiFENesin/CODEINE (ROBITUSSIN AC) 10ML UDC PO PRN (17:15)
[2018-06-24] MEDS ORDERED: ONDANSETRON 4 MG/2 ML (SDV) Z0FRAN IVP PRN (17:15)
[2018-06-24] MEDS ORDERED: RT-ALBUTEROL SULF 2.5 MG/3 ML PRE-MIX VIAL INH PRN (17:15)
[2018-06-24] MEDS ORDERED: LOPERAMIDE 2 MG (IMODIUM) CAP PO PRN (17:15)
[2018-06-24] MEDS ORDERED: diphenhydrAMINE 25 MG TAB (BENADRYL) PO PRN (17:15)
[2018-06-24] MEDS ORDERED: IBUPROFEN TABLET 200 MG TAB PO PRN (17:15)
[2018-06-24 20:00] VITALS: BP 128/60
[2018-06-24] MEDS ORDERED: BUDESONIDE 0.25 MG NEB SCH (21:00)
[2018-06-24] MEDS: ASPIRIN E.C. 81 MG (ECOTRIN) TAB PO SCH (21:08)
[2018-06-24] MEDS: LORATADINE (CLARITIN) 10 MG TAB PO SCH (21:08)
[2018-06-24] MEDS: ARFORMOTEROL 15 MCG/2 ML (BROVANA) INH SOLUTIION IH SCH (22:42)
[2018-06-24] MEDS: RT-BUDESONIDE NEBS 0.5 MG/2ML (PULMICORT) AMP INH SCH (22:42)
[2018-06-24 23:50] VITALS: BP 132/73
[2018-06-25] MEDS: RT-ALBUTEROL/IPRATROPIUM 3 ML (DUONEB) VIAL IH SCH ×2 (02:18→06:17)
[2018-06-25 04:06] VITALS: BP 122/56
[2018-06-25] MEDS: NS IV 1000 ML 1,000 ML IV SCH ×2 (06:03→17:15)
[2018-06-25] MEDS: ARFORMOTEROL 15 MCG/2 ML (BROVANA) INH SOLUTIION IH SCH ×2 (06:16→19:21)
[2018-06-25] MEDS: RT-BUDESONIDE NEBS 0.5 MG/2ML (PULMICORT) AMP INH SCH ×2 (06:17→19:21)
--- NOTE | 2018-06-25 06:39 | Pulmonary Consultation ---
NICOLASALYCIA Patton STUDENT 06/25/18 0639: History of Present Illness History of Present Illness Date of Consultation 06/25/18 06:34 Time Seen by Provider: 06:34 Date of Admission 06/24/18 Reason for Visit: AECOPD History of Present Illness 67 y/o male seen yesterday in Dr. Diaz's office for severe, acute COPD exacerbations; he was subsequently admitted due to hypoxia for IV steroids, nebs , and oxygen treatment. He recently had been treated for PNA by his PCP with rocephin, levaquin, and steroid without improvement. He has a lot of shortness of breath and some orthopnea. He denies history of heart problems except for a potential heart attack about 2 years ago. Today, he remains short of breath and has seen little improvement. He gets short of breath only from walking to the bathroom. Allergies and Home Medications Allergies Coded Allergies: No Known Drug Allergies (Unverified , 06/24/18) Home Medications Albuterol Sulfate 18 Gm Hfa.aer.ad, 2 PUFF INH QID PRN for SHORTNESS OF BREATH, (Reported) Arformoterol Tartrate 15 Mcg/2 Ml Vial.neb, 15 MCG NEB BID, (Reported) Aspirin 81 Mg Tablet.dr, 81 MG PO HS, (Reported) Budesonide 0.25 Mg/2 Ml Ampul.neb, 0.25 MG NEB BID, (Reported) Ipratropium/Albuterol Sulfate 3 Ml Ampul.neb, 3 ML NEB QID PRN for SHORTNESS OF BREATH, (Reported) Loratadine 10 Mg Tablet, 10 MG PO HS, (Reported) Vit A/Vit C/Vit E/Zinc/Copper 1 Each Tablet, 1 TAB PO HS, (Reported) Past Gseokjt-Oonkxi-Lrgnhp Hx Past Med/Social Hx: Reviewed Nursing Past Med/Soc Hx, Reviewed and Corrections made Patient Social History Alcohol Use: Occasionally Uses Number of Drinks Today: 0 Alcohol Beverage of Choice: Whiskey Recreational Drug Use: No Smoking Status: Current Everyday Smoker Type Used: Cigarettes Recent Foreign Travel: No Contact w/Someone Who Travel: No Recent Infectious Disease Expo: No Recent Hopitalizations: No Seasonal Allergies Seasonal Allergies: Yes Past Medical History Surgeries: Yes Respiratory: Yes COPD Currently Using CPAP: No Currently Using BIPAP: No Cardiac: Yes Neurological: No Genitourinary: No Gastrointestinal: Yes Abdominal Hernia Musculoskeletal: No Endocrine: No HEENT: No Cancer: No Psychosocial: No Integumentary: No Blood Disorders: No Family Medical History Dementia 19 MOTHER Neoplasm 19 FATHER Review of Systems Date Seen by Provider: Jun 25, 2018 Time Seen by Provider: 08:00 Constitutional: Sweats; No: Fever, Chills Eyes: No: Pain, Vision change ENT: No: Ear pain, Throat pain Respiratory: Cough, Shortness of breath, SOB with excertion, Wheezing; No: Hemoptysis, Pleuritic Pain Cardiovascular: Orthopnea, Paroxysmal Noc. Dyspnea; No: Chest Pain, Palpitations, Edema Gastrointestinal: No: Nausea, Vomiting, Abdominal Pain, Diarrhea Genitourinary: No Dysuria Skin: No: Rash Neurological: No: Weakness Sepsis Event Evaluation Height, Weight, BMI Height: 5'6.00" Weight: 198lbs. 4.0oz. 89.657170hd; 32.0 BMI Method: Exam Exam Vital Signs Date Time Temp Pulse Resp B/P (MAP) Pulse Ox O2 Delivery O2 Flow Rate FiO2 06/25/18 06:24 98 Nasal Cannula 2.00 06/25/18 06:22 98 Nasal Cannula 2.00 06/25/18 06:17 96 Nasal Cannula 2.00 06/25/18 04:06 97.5 86 22 122/56 (78) 97 Nasal Cannula 2.00 06/25/18 02:19 99 Nasal Cannula 2.00 06/24/18 23:50 98.4 93 24 132/73 (92) 97 Nasal Cannula 2.00 06/24/18 22:46 Nasal Cannula 2.00 06/24/18 22:45 98 Nasal Cannula 2.00 06/24/18 20:00 Nasal Cannula 2.00 06/24/18 20:00 97.9 84 20 128/60 (82) 98 Room Air 06/24/18 18:41 98 Nasal Cannula 2.00 06/24/18 16:00 98.1 95 20 138/69 (92) 98 Room Air 06/24/18 14:18 95 Nasal Cannula 2.00 06/24/18 11:48 98.6 97 22 116/73 (87) 95 Room Air 06/24/18 11:48 95 Room Air I & O 06/25/18 07:00 Intake Total 2040 ml Balance 2040 ml Height & Weight Height: 5'6.00" Weight: 198lbs. 4.0oz. 89.802217sd; 32.0 BMI Method: General Appearance: WD/WN, Mild Distress HEENT: PERRL/EOMI, Pharynx Normal, Moist Mucous Membranes Neck: Full Range of Motion, Normal Inspection, Non Tender, Supple Respiratory: Chest Non Tender, Accessory Muscle Use, Decreased Breath Sounds, Respiratory Distress (mild), Wheezing (diffuse expiratory) Cardiovascular: Regular Rate, Rhythm, No Edema, No Gallop, No JVD, No Murmur, Normal Peripheral Pulses Capillary Refill: Less Than 3 Seconds Gastrointestinal: normal bowel sounds, non tender, soft, no organomegaly Extremity: Normal Capillary Refill, Normal Inspection, Normal Range of Motion, Non Tender, No Calf Tenderness, No Pedal Edema Neurologic/Psychiatric: Alert, Oriented x3, No Motor/Sensory Deficits, Normal Mood/Affect Skin: Normal Color, Warm/Dry Lymphatic: No Adenopathy Results Lab Laboratory Tests 06/24/18 13:50 Assessment/Plan Assessment/Plan AECOPD -Duonebs Q4h - Oxygen to keep O2 sat 88-92% - Levofloxacin 750mg PO daily, Solumedrol 40 -Continue pulmicort and brovana inhalers Hypoxia, stable -Saturating between 95-98% on 2 L NC -May need home oxygen -Ruled out DVT in bilateral major arteries; troponin and BNP negative -ABG showed no acid-base abnormality Tobacco use disorder -encourage cessation Hyperlipidemia, chronic - continue home medications DIOR DIAZ DO 06/25/18 0914: History of Present Illness History of Present Illness Time Seen by Provider: 09:08 History of Present Illness 67yo with hx of oxygen dependent COPD admitted directly from my office secondary to worsening SOB, and wheezing. He was recently treated for pneumonia as an out patient including Rocephin, Levaquin, and Prednisone without improvement. PT still feels SOB this AM rita with even little exertion. I am consulted for pulmonary management. Allergies and Home Medications Allergies Coded Allergies: No Known Drug Allergies (Unverified , 06/24/18) Home Medications Albuterol Sulfate 18 Gm Hfa.aer.ad, 2 PUFF INH QID PRN for SHORTNESS OF BREATH, (Reported) Arformoterol Tartrate 15 Mcg/2 Ml Vial.neb, 15 MCG NEB BID, (Reported) Aspirin 81 Mg Tablet.dr, 81 MG PO HS, (Reported) Budesonide 0.25 Mg/2 Ml Ampul.neb, 0.25 MG NEB BID, (Reported) Ipratropium/Albuterol Sulfate 3 Ml Ampul.neb, 3 ML NEB QID PRN for SHORTNESS OF BREATH, (Reported) Loratadine 10 Mg Tablet, 10 MG PO HS, (Reported) Vit A/Vit C/Vit E/Zinc/Copper 1 Each Tablet, 1 TAB PO HS, (Reported) Past Kzxesnv-Qkpjrl-Ftwzfw Hx Family Medical History Dementia 19 MOTHER Neoplasm 19 FATHER Review of Systems Time Seen by Provider: 09:11 Constitutional: Sweats; No: Fever, Chills Eyes: No: Pain, Vision change ENT: No: Ear pain, Throat pain Respiratory: Cough, Shortness of breath, SOB with excertion, Wheezing; No: Hemoptysis, Pleuritic Pain Cardiovascular: Orthopnea, Paroxysmal Noc. Dyspnea; No: Chest Pain, Palpitations, Edema Gastrointestinal: No: Nausea, Vomiting, Abdominal Pain, Diarrhea Genitourinary: No Dysuria Skin: No: Rash Neurological: No: Weakness Exam Exam General Appearance: WD/WN, Mild Distress HEENT: PERRL/EOMI, Pharynx Normal, Moist Mucous Membranes Neck: Full Range of Motion, Normal Inspection, Non Tender, Supple Respiratory: Accessory Muscle Use, Decreased Breath Sounds, Respiratory Distress (mild), Wheezing (diffuse expiratory) Capillary Refill: Less Than 3 Seconds Gastrointestinal: normal bowel sounds, non tender, soft, no organomegaly Extremity: Normal Capillary Refill, Normal Inspection, Normal Range of Motion, Non Tender, No Calf Tenderness, No Pedal Edema Neurologic/Psychiatric: Alert, Oriented x3, No Motor/Sensory Deficits, Normal Mood/Affect Skin: Normal Color, Warm/Dry Lymphatic: No Adenopathy Assessment/Plan Assessment/Plan AECOPD -Duonebs Q4h - Oxygen to keep O2 sat 88-92% - Levofloxacin 750mg PO daily, Solumedrol 40 -Continue pulmicort and brovana inhalers -Troponins are negative x 3 -BNP is normal -CT shows only COPD Hypoxia, stable -Saturating between 95-98% on 2 L NC -May need home oxygen -Dopplers are neg -ABG shows C02 47 Tobacco use disorder -encourage cessation Hyperlipidemia, chronic - continue home medications NILA-BIECHLER,ALYCIA K STUDENT Jun 25, 2018 06:39 DIOR DIAZ DO Jun 25, 2018 09:14
[2018-06-25 08:00] VITALS: BP 130/82
--- NOTE | 2018-06-25 10:03 | Progress Note-Hospitalist ---
PASTORA BROWNE DO 06/25/18 1003: Subjective HPI/CC On Admission Date Seen by Provider: Jun 25, 2018 Time Seen by Provider: 09:00 CC: Dyspnea HPI: This is a 67-year-old white male that was seen as a new patient by Dr. Diaz's office that was found to have severe acute exacerbation of COPD in need of hospitalization with IV steroids nebulizer treatments and oxygen supplementation. Apparently he had completed 2 rounds of antibiotics of Rocephin and Levaquin and injection of steroids and pills of steroids but continued to worsen. He reports that he has not been feeling well for the past 3 months. He is upset with his for forcing him to come into the hospital. Overall he understands the plan for oxygen supplementation and likely will need to go home on oxygen. Smoking cessation was counseled. Subjective/Events-last exam Patient reports that his breathing is about the same Bilateral wheezing and rhonchi noted Wanting to know results of test that Dr. Diaz ordered so I did confer with Dr. Diaz and he will discuss everything with them Will need home O2 evaluation Restarted all home meds Review of Systems Pulmonary: Dyspnea, Cough Focused Exam Lactate Level 06/24/18 13:50: Lactic Acid Level 1.67 Objective Exam Vital Signs Vital Signs Date Time Temp Pulse Resp B/P (MAP) Pulse Ox O2 Delivery O2 Flow Rate FiO2 06/25/18 11:17 94 Nasal Cannula 2.00 06/25/18 08:00 98.7 73 22 130/82 (98) Capillary Refill : Less Than 3 SecondsLess Than 3 Seconds General Appearance: No Apparent Distress, WD/WN, Chronically ill, Obese Neck: Full Range of Motion, Normal Inspection, Non Tender, Supple, Carotid Bruit Respiratory: Chest Non Tender, No Accessory Muscle Use, No Respiratory Distress , Decreased Breath Sounds, Wheezing Cardiovascular: Regular Rate, Rhythm, No Edema, No Gallop, No JVD, No Murmur, Normal Peripheral Pulses Neurologic/Psychiatric: Alert, Oriented x3, No Motor/Sensory Deficits, Normal Mood/Affect Results/Procedures Lab Laboratory Tests 06/24/18 13:50 Patient resulted labs reviewed. Assessment/Plan Assessment and Plan Assess & Plan/Chief Complaint Assessment: Acute exacerbation of COPD Current smoker Plan: Maintain IV steroids Nebulizers O2 Will likely need home O2 at discharge Diagnosis/Problems Diagnosis/Problems (1) COPD exacerbation Status: Acute (2) Smoker Status: Chronic Clinical Quality Measures DVT/VTE Risk/Contraindication: Risk Factor Score Per Nursin RFS Level Per Nursing on Admit: 4+=Very High BRENDAN HORNE MEDICAL STUDENT 06/25/18 1104: Subjective Subjective/Events-last exam Pt states he is still short of breath, hasnt felt like he has improved much from yesterday. CXR showed COPD with right basilar scarring US negative for DVT bilat LE CT chest: stable chest, with emphysematous changes Objective Exam General Appearance: No Apparent Distress HEENT: PERRL/EOMI Neck: Full Range of Motion, Supple Respiratory: No Accessory Muscle Use, Decreased Breath Sounds Cardiovascular: Regular Rate, Rhythm, No Edema Assessment/Plan Assessment and Plan Assess & Plan/Chief Complaint Assessment AECOPD DVT - US negative for DVT PNA - unlikely due to no leukocytosis and no consolidation on CXR Tobacco use failed outpt therapy hypoxia History of HLD Plan continue IV Abx continue IV Steroids smoking cessation O2 to keep sats in the 90's Pulmonology consult PASTORA BROWNE DO Jun 25, 2018 10:03 BRENDAN HORNE MEDICAL STUDENT Jun 25, 2018 11:04
[2018-06-25] MEDS ORDERED: PROMETHAZINE/ CODEINE SYRUP 5 ML UDC PO PRN (10:15)
[2018-06-25] MEDS ORDERED: methylPREDNISolone 125 MG (Solu-MEDROL) VIAL IVP NR (10:37)
[2018-06-25] MEDS ORDERED: RT-ALBUTEROL/IPRATROPIUM 3 ML (DUONEB) VIAL IH PRN (10:45)
[2018-06-25] MEDS: RT-ALBUTEROL/IPRATROPIUM 3 ML (DUONEB) VIAL INH SCH ×4 (11:17→22:58)
--- NOTE | 2018-06-25 11:33 | Physician Query Clarification ---
PQ-Intro New Diagnosis Admission/Discharge Admission Date: Jun 24, 2018 at 11:48 Discharge Date: The medical record reflects the following clinical scenario: History/Risk Factors: COPD with acute exacerbation Hx of pneumonia Clinical Findings: 06/24 xray Impression: COPD with right basilar scarring/subsegmental atelectasis. Hypoxia, orthopnea, mild respiratory distress, accessory muscle use. Treatment: Duonebs Q4h, Oxygen, Solu Medrol Question: What condition best reflects the above clinical scenario? Please document below. 1. COPD with acute exacerbation with atelectasis as a secondary diagnosis. 2. COPD with acute exacerbation without the diagnosis of atelectasis. 3. Other, with explanation of the clinical findings. 4. Clinically undetermined, no explanation for the clinical findings. PHYSICIAN RESPONSE What condition reflects above: 1 In responding to this query, please exercise your independent professional judgment. The purpose of this communication is to more accurately reflect the complexity of your patients condition. The fact that a question is asked does not imply that any particular answer is desired or expected. Thank you for your timely response to this clarification. Requestors name: Tammy Quintana [facility] Phone # ext [phone] or [phone] THIS PHYSICIAN QUERY FORM IS A PERMANENT PART OF THE MEDICAL RECORD TAMMY QUINTANA Jun 25, 2018 11:33 PASTORA BROWNE DO Jun 25, 2018 20:10
[2018-06-25 12:00] VITALS: BP 127/81
[2018-06-25] MEDS: methylPREDNISolone 40 MG/ML (Solu-MEDROL) VIAL IV SCH ×3 (13:10→23:56)
[2018-06-25] MEDS: ENOXAPARIN 40 MG/0.4 ML (LOVENOX) SYR SC SCH (14:54)
[2018-06-25 16:00] VITALS: BP 121/78
--- NOTE | 2018-06-25 18:01 | NUR ---
Patient did not drop below 89% during his 6 min walk; patient did not require O2 at rest or on exertion.
[2018-06-25 20:00] VITALS: BP 142/69
[2018-06-25] MEDS: LORATADINE (CLARITIN) 10 MG TAB PO SCH (21:20)
[2018-06-25] MEDS: ASPIRIN E.C. 81 MG (ECOTRIN) TAB PO SCH (21:21)
[2018-06-26 00:45] VITALS: BP 120/64
[2018-06-26] MEDS: RT-ALBUTEROL/IPRATROPIUM 3 ML (DUONEB) VIAL INH SCH ×2 (03:03→06:19)
--- NOTE | 2018-06-26 03:51 | NUR ---
Dr. Vazquez contacted regarding pt HR being elevated this evening. Pt has been running 80's-90's but beginning last evening he started running low 100's. At 0300 HR was 128 before breathing treatment and when checked again at 0330 HR was still 127. BP stable at 120/64. Dr. Vazquez okayed to start lopressor 25mg PO BID and to give 0900 dose early. TORB. Will continue to monitor.
[2018-06-26 04:02] VITALS: BP 120/66
[2018-06-26] MEDS ORDERED: meTOprolol TARTRATE 25 MG (LOPRESSOR) TABLET ONE (04:13)
[2018-06-26] MEDS: meTOprolol TARTRATE 25 MG (LOPRESSOR) TABLET PO SCH ×2 (04:18→21:13)
--- NOTE | 2018-06-26 05:15 | NUR ---
This RN went and spoke to Dr. Diaz about pt still having HR 128 an hour after getting 25mg PO lopressor. He requests an EKG and to notify him of the results.
--- NOTE | 2018-06-26 05:45 | NUR ---
This RN went and told Dr. Diaz about EKG showing NSR. Dr. Diaz orders to increase NS Fluids to 125ml/hr.
[2018-06-26] MEDS: methylPREDNISolone 40 MG/ML (Solu-MEDROL) VIAL IV SCH (05:47)
[2018-06-26] MEDS: RT-BUDESONIDE NEBS 0.5 MG/2ML (PULMICORT) AMP INH SCH (06:19)
--- NOTE | 2018-06-26 07:04 | Pulmonary Progress Note ---
ALYCIA VALENZUELA Abdi STUDENT 06/26/18 0703: Subjective Date Seen by a Provider: Jun 26, 2018 Time Seen by a Provider: 06:59 Sepsis Event Evaluation Height, Weight, BMI Height: 5'6.00" Weight: 209lbs. 1.6oz. 94.670923ri; 32.0 BMI Method: Focused Exam Lactate Level 06/24/18 13:50: Lactic Acid Level 1.67 Exam Exam Vital Signs Date Time Temp Pulse Resp B/P (MAP) Pulse Ox O2 Delivery O2 Flow Rate FiO2 06/26/18 06:20 92 Nasal Cannula 2.00 06/26/18 04:02 97.7 127 20 120/66 (84) 95 Nasal Cannula 2.00 06/26/18 03:03 92 Nasal Cannula 2.00 06/26/18 00:45 97.4 103 20 120/64 (82) 94 Nasal Cannula 2.00 06/25/18 22:59 92 Room Air 06/25/18 20:00 96.4 117 24 142/69 (93) 94 Nasal Cannula 2.00 06/25/18 20:00 Nasal Cannula 2.00 06/25/18 19:32 93 Room Air 06/25/18 19:27 93 Room Air 06/25/18 19:22 93 Room Air 06/25/18 17:20 94 2.00 06/25/18 16:00 98.2 96 22 121/78 (92) 95 Nasal Cannula 2.00 06/25/18 16:00 96 Nasal Cannula 2.00 06/25/18 12:00 97.3 82 20 127/81 (96) 96 Nasal Cannula 2.00 06/25/18 11:17 94 Nasal Cannula 2.00 06/25/18 08:00 Nasal Cannula 2.00 06/25/18 08:00 98.7 73 22 130/82 (98) 98 Nasal Cannula 2.00 I & O 06/26/18 07:00 Intake Total 3190 ml Balance 3190 ml Height & Weight Height: 5'6.00" Weight: 209lbs. 1.6oz. 94.402638hr; 32.0 BMI Method: General Appearance: No Apparent Distress, WD/WN, Chronically ill, Obese HEENT: PERRL/EOMI Neck: Full Range of Motion, Normal Inspection, Non Tender, Supple, Carotid Bruit Respiratory: Chest Non Tender, No Accessory Muscle Use, No Respiratory Distress , Decreased Breath Sounds, Wheezing Cardiovascular: Regular Rate, Rhythm, No Edema, No Gallop, No JVD, No Murmur, Normal Peripheral Pulses Capillary Refill: Less Than 3 Seconds Gastrointestinal: normal bowel sounds, non tender, soft, no organomegaly Extremity: Normal Capillary Refill, Normal Inspection, Normal Range of Motion, Non Tender, No Calf Tenderness, No Pedal Edema Neurologic/Psychiatric: Alert, Oriented x3, No Motor/Sensory Deficits, Normal Mood/Affect Skin: Normal Color, Warm/Dry Lymphatic: No Adenopathy Results Lab Laboratory Tests 06/24/18 13:50 Assessment/Plan Assessment/Plan AECOPD -Duonebs Q4h, Continue pulmicort and brovana inhalers - Oxygen to keep O2 sat 88-92% - Solumedrol 40 -Troponins are negative x 3; BNP is normal -CT shows only COPD - Recheck CBC - Sputum culture negative: Few WBC, upper respiratory jen Tachycardia - Pulse in 120s - Gave metoprolol, increased fluids to 35 cc/hr - EKG showed sinus rhythm per nursing Hypoxia, stable -Saturating between 95-98% on 2 L NC -RT eval showed no need for home oxygen at baseline or with exertion -Dopplers are neg -ABG shows C02 47 Tobacco use disorder -encourage cessation Hyperlipidemia, chronic - continue home medications DIOR MORGAN DO 06/26/18 0839: Subjective Time Seen by a Provider: 08:34 Subjective/Events-last exam SOB is improved. PT has had a sinus tach. PT does feel anxious Exam Exam General Appearance: No Apparent Distress, WD/WN, Chronically ill, Obese HEENT: PERRL/EOMI Neck: Full Range of Motion, Normal Inspection, Non Tender, Supple, Carotid Bruit Respiratory: Chest Non Tender, No Accessory Muscle Use, Decreased Breath Sounds , Wheezing Cardiovascular: Regular Rate, Rhythm, No Edema, No Gallop, No JVD, No Murmur, Normal Peripheral Pulses Gastrointestinal: normal bowel sounds, non tender, soft, no organomegaly Extremity: Normal Capillary Refill, Normal Inspection, Normal Range of Motion, Non Tender, No Calf Tenderness, No Pedal Edema Neurologic/Psychiatric: Alert, Oriented x3, No Motor/Sensory Deficits, Normal Mood/Affect Skin: Normal Color, Warm/Dry Assessment/Plan Assessment/Plan AECOPD with hypoxia -Duonebs Q4h- change to Xopenex , Change pulmicort and brovana to advair - Oxygen to keep O2 sat 88-92% - Solumedrol 40 -- change to prednisone taper --ABG shows C02 47 -CT shows only COPD Sinus Tachycardia -Repeat labs - Pulse in 120s - metoprolol, increased fluids to 125 cc/hr -Change SVN to Xopenex - EKG showed sinus rhythm per nursing Tobacco use disorder -encourage cessation Hyperlipidemia, chronic - continue home medications ALYCIA VALENZUELA STUDENT Jun 26, 2018 07:03 DIOR MORGAN DO Jun 26, 2018 08:39
[2018-06-26 08:00] VITALS: BP 135/79
[2018-06-26] MEDS ORDERED: RT-ALBUTEROL SULF 2.5 MG/3 ML PRE-MIX VIAL INH SCH (09:00)
[2018-06-26 09:52] LABS: BASOPHILS % (AUTO) 0 % (0-10); EOSINOPHILS % (AUTO) 0 % (0-10); HEMATOCRIT 39 % (40-54); LYMPHOCYTES # (AUTO) 0.7 X 10^3 (1.0-4.0); LYMPHOCYTES % (AUTO) 5 % (12-44); MEAN CORPUSCULAR HEMOGLOBIN 30 PG (25-34); MEAN CORPUSCULAR HGB CONC 33 G/DL (32-36); MEAN CORPUSCULAR VOLUME 92 FL (80-99); MEAN PLATELET VOLUME 10.7 FL (7.4-10.4); MONOCYTES # (AUTO) 0.5 X 10^3 (0.0-1.0); MONOCYTES % (AUTO) 3 % (0-12); NEUTROPHILS # (AUTO) 13.8 X 10^3 (1.8-7.8); NEUTROPHILS % (AUTO) 92 % (42-75); PLATELET COUNT 174 10^3/uL (130-400); RED BLOOD COUNT 4.29 10^6/uL (4.35-5.85); RED CELL DISTRIBUTION WIDTH 13.3 % (10.0-14.5)
[2018-06-26 10:07] LABS: BUN/CREATININE RATIO 12; CALCIUM 8.9 MG/DL (8.5-10.1); CARBON DIOXIDE 22 MMOL/L (21-32); CHLORIDE 110 MMOL/L (98-107); CREATININE SERUM 1.19 MG/DL (0.60-1.30); GFR ESTIMATED > 60; GLUCOSE 131 MG/DL (70-105); MAGNESIUM 1.9 MG/DL (1.8-2.4); PHOSPHORUS 2.1 MG/DL (2.3-4.7); POTASSIUM 4.3 MMOL/L (3.6-5.0); SODIUM 143 MMOL/L (135-145)
[2018-06-26 10:26] LABS: BAND NEUTROPHILS 0 %; BASOPHILS % (MANUAL) 0 %; EOSINOPHILS % (MANUAL) 0 %; LYMPHOCYTES % (MANUAL) 3 %; MONOCYTES % (MANUAL) 2 %; NEUTROPHILS % (MANUAL) 95 %; RBC MORPH NORMAL
[2018-06-26] MEDS: predniSONE 10 MG TAB PO SCH (10:26)
--- NOTE | 2018-06-26 10:51 | Progress Note-Hospitalist ---
Subjective HPI/CC On Admission Date Seen by Provider: Jun 26, 2018 Time Seen by Provider: 09:30 CC: Dyspnea HPI: This is a 67-year-old white male that was seen as a new patient by Dr. Diaz's office that was found to have severe acute exacerbation of COPD in need of hospitalization with IV steroids nebulizer treatments and oxygen supplementation. Apparently he had completed 2 rounds of antibiotics of Rocephin and Levaquin and injection of steroids and pills of steroids but continued to worsen. He reports that he has not been feeling well for the past 3 months. He is upset with his for forcing him to come into the hospital. Overall he understands the plan for oxygen supplementation and likely will need to go home on oxygen. Smoking cessation was counseled. Subjective/Events-last exam Patient feels like he is breathing better Feels like he is getting things caught in his throat If he is having severe silent reflux that could be flaring up the COPD and continuous cough Reports he's gotten things stuck in his throat before but it's been a while We'll consult Dr. Aaron for EGD Patient was placed on nothing by mouth status due to aspiration risk No pain is reported Overall improved status but will take a while longer with IV steroids because of the severity of his COPD exacerbation since this is new onset Will need home oxygen management also Review of Systems General: Fatigue HEENT: Dysphasia Pulmonary: Dyspnea, Cough Focused Exam Lactate Level 06/24/18 13:50: Lactic Acid Level 1.67 Objective Exam Vital Signs Vital Signs Date Time Temp Pulse Resp B/P (MAP) Pulse Ox O2 Delivery O2 Flow Rate FiO2 06/26/18 08:00 Nasal Cannula 2.00 06/26/18 08:00 96.8 135 20 135/79 (97) 94 Capillary Refill : Less Than 3 SecondsLess Than 3 Seconds General Appearance: No Apparent Distress, WD/WN, Chronically ill Respiratory: Chest Non Tender, No Accessory Muscle Use, No Respiratory Distress , Crackles, Wheezing Cardiovascular: Regular Rate, Rhythm, No Edema, No Gallop, No JVD, No Murmur, Normal Peripheral Pulses Neurologic/Psychiatric: Alert, Oriented x3, No Motor/Sensory Deficits, Normal Mood/Affect Results/Procedures Lab Laboratory Tests 06/26/18 09:36 Patient resulted labs reviewed. Assessment/Plan Assessment and Plan Assess & Plan/Chief Complaint Assessment: Acute exacerbation of COPD Current smoker Dysphagia with possible reflux complicating COPD in need of EGD Plan: Maintain IV steroids Nebulizers O2 Will likely need home O2 at discharge EGD by Dr. Aaron Diagnosis/Problems Diagnosis/Problems (1) COPD exacerbation Status: Acute (2) Smoker Status: Chronic (3) Tachycardia Status: Acute (4) Anxiety Status: Acute (5) Dysphagia Status: Acute Qualifiers: Dysphagia type: pharyngoesophageal phase Qualified Codes: R13.14 - Dysphagia, pharyngoesophageal phase Clinical Quality Measures DVT/VTE Risk/Contraindication: Risk Factor Score Per Nursin RFS Level Per Nursing on Admit: 4+=Very High PASTORA BROWNE DO Jun 26, 2018 10:51
[2018-06-26] MEDS: NS IV 1000 ML 1,000 ML IV SCH ×2 (11:06→21:46)
--- NOTE | 2018-06-26 13:45 | NUR ---
RECEIVED REPORT FROM BUZZ MURRAY TO ASSUME NURSING CARE DUE TO STAFFING CHANGES
--- NOTE | 2018-06-26 14:00 | NUR ---
TO ENDO PER W/C, VERBALIZED UNDERSTANDING, CONSENT SIGNED
[2018-06-26] MEDS ORDERED: LACTATED RINGERS 1,000 ML IV PRN (14:23)
[2018-06-26] MEDS ORDERED: LACTATED RINGERS 1,000 ML IV ONE (14:29)
[2018-06-26] MEDS ORDERED: HURRICAINE EXT TUBE (BENZOCAINE) XX ONE (14:30)
--- NOTE | 2018-06-26 14:30 | Consultation ---
History of Present Illness History of Present Illness Patient Consulted On(guan[place]ito/time) 06/26/18 14:25 Time Seen by Provider: 14:03 Reason for Visit: AECOPD History of Present Illness Surgery asked to consult regarding possible esophageal obstruction. HPI per IM: This is a 67-year-old white male that was seen as a new patient by Dr. Diaz's office that was found to have severe acute exacerbation of COPD in need of hospitalization with IV steroids nebulizer treatments and oxygen supplementation. Apparently he had completed 2 rounds of antibiotics of Rocephin and Levaquin and injection of steroids and pills of steroids but continued to worsen. He reports that he has not been feeling well for the past 3 months. He is upset with his for forcing him to come into the hospital. Overall he understands the plan for oxygen supplementation and likely will need to go home on oxygen. When I spoke to pt today he stated that his symptoms started last night; couldn' t eat a tuna sandwich. He describes a feeling of "something stuck and food won' t go into my stomach". He states there is a pressure and he was burping a lot and even liquid wouldn't go down. He states this happened one other time about 2 weeks ago, but didn't last long and after burping "things started going down. ". This time it lasted all night and couldn't get stuff to go down this morning after he ate some pancakes. "I vomited up my milk" and has been npo since then. He denies eating any steak or chicken or firm food. He was also unable to get his pills down today. Allergies and Home Medications Allergies Coded Allergies: No Known Drug Allergies (Unverified , 06/24/18) Home Medications Albuterol Sulfate 18 Gm Hfa.aer.ad, 2 PUFF INH QID PRN for SHORTNESS OF BREATH, (Reported) Arformoterol Tartrate 15 Mcg/2 Ml Vial.neb, 15 MCG NEB BID, (Reported) Aspirin 81 Mg Tablet.dr, 81 MG PO HS, (Reported) Budesonide 0.25 Mg/2 Ml Ampul.neb, 0.25 MG NEB BID, (Reported) Ipratropium/Albuterol Sulfate 3 Ml Ampul.neb, 3 ML NEB QID PRN for SHORTNESS OF BREATH, (Reported) Loratadine 10 Mg Tablet, 10 MG PO HS, (Reported) Vit A/Vit C/Vit E/Zinc/Copper 1 Each Tablet, 1 TAB PO HS, (Reported) Patient Home Medication List Home Medication List Reviewed: Yes Past Xmnwxcs-Brgqgb-Nedpyy Hx Patient Social History Alcohol Use: Occasionally Uses Number of Drinks Today: 0 Recreational Drug Use: No Smoking Status: Current Everyday Smoker Type Used: Cigarettes Recent Foreign Travel: No Contact w/Someone Who Travel: No Recent Infectious Disease Expo: No Recent Hopitalizations: No Physical Abuse Screen: No Sexual Abuse: No Seasonal Allergies Seasonal Allergies: Yes Surgeries History of Surgeries: Yes Respiratory History of Respiratory Disorde: Yes Respiratory Disorders: COPD Cardiovascular History of Cardiac Disorders: Yes Neurological History of Neurological Disord: No Genitourinary History of Genitourinary Disor: No Gastrointestinal History of Gastrointestinal Di: Yes Gastrointestinal Disorders: Abdominal Hernia Musculoskeletal History of Musculoskeletal Dis: No Endocrine History of Endocrine Disorders: No HEENT History of HEENT Disorders: No Cancer History of Cancer: No Psychosocial History of Psychiatric Problem: No Integumentary History of Skin or Integumenta: No Blood Transfusions History of Blood Disorders: No Family Medical History Significant Family History: Cancer (Father had pancreatic CA, Brother had lung CA), COPD (Father) Family Medial History: Dementia 19 MOTHER Neoplasm 19 FATHER Review of Systems-General Constitutional: No chills, No diaphoresis EENTM: No blurred vision, No double vision, No mouth pain, No mouth swelling, No epistaxis, No throat swelling Respiratory: cough, dyspnea on exertion; No hemoptysis; short of breath Cardiovascular: No chest pain, No edema, No palpitations Gastrointestinal: abdominal pain; No hematemesis; nausea, vomiting Genitourinary: No dysuria, No frequency, No hematuria Musculoskeletal: back pain, muscle pain, muscle stiffness Skin: No change in color, No change in hair/nails Psychiatric/Neurological: Denies Anxiety, Denies Depressed, Denies Seizure, Denies Tremors Other pt denies any abnormal bleeding or bruising Physical Exam-General Problems Physical Exam Vital Signs Vital Signs - First Documented 06/24/18 06/24/18 11:48 14:18 Temp 98.6 Pulse 97 Resp 22 B/P (MAP) 116/73 (87) Pulse Ox 95 O2 Delivery Room Air O2 Flow Rate 2.00 Capillary Refill : Less Than 3 SecondsLess Than 3 Seconds General Appearance: WD/WN, no apparent distress Eyes: Bilateral Eye PERRL, Bilateral Eye EOMI HEENT: pharynx normal; No scleral icterus (R), No scleral icterus (L) Neck: non-tender, normal inspection; No thyromegaly Respiratory: chest non-tender, no respiratory distress, no accessory muscle use , decreased breath sounds Cardiovascular: regular rate, rhythm, no edema, no murmur Gastrointestinal: normal bowel sounds, non tender, soft, no organomegaly, no pulsatile mass Back: no CVA tenderness, no vertebral tenderness Extremities: normal range of motion, non-tender, no pedal edema, no calf tenderness, normal capillary refill 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, no motor/sensory deficits, alert, normal mood/affect, oriented x 3 Skin: normal color, warm/dry Lymphatic: no adenopathy (neck, axilla or groin) Data Review Labs Laboratory Tests 06/26/18 09:36: White Blood Count 15.0H, Red Blood Count 4.29L, Hemoglobin 13.0L, Hematocrit 39L , Mean Corpuscular Volume 92, Mean Corpuscular Hemoglobin 30, Mean Corpuscular Hemoglobin Concent 33, Red Cell Distribution Width 13.3, Platelet Count 174, Mean Platelet Volume 10.7H, Neutrophils (%) (Auto) 92H, Lymphocytes (%) (Auto) 5L, Monocytes (%) (Auto) 3, Eosinophils (%) (Auto) 0, Basophils (%) (Auto) 0, Neutrophils # (Auto) 13.8H, Lymphocytes # (Auto) 0.7L, Monocytes # (Auto) 0.5, Eosinophils # (Auto) 0.0, Basophils # (Auto) 0.0, Neutrophils % (Manual) 95, Lymphocytes % (Manual) 3, Monocytes % (Manual) 2, Eosinophils % (Manual) 0, Basophils % (Manual) 0, Band Neutrophils 0, Blood Morphology Comment NORMAL, Sodium Level 143, Potassium Level 4.3, Chloride Level 110H, Carbon Dioxide Level 22, Anion Gap 11, Blood Urea Nitrogen 14, Creatinine 1.19, Estimat Glomerular Filtration Rate > 60, BUN/Creatinine Ratio 12, Glucose Level 131H, Calcium Level 8.9, Phosphorus Level 2.1L, Magnesium Level 1.9 Microbiology 06/24/18 Gram Stain - Final, Complete 1/9/19 Sputum Culture - Final, Complete Usual upper respiratory jen Assessment/Plan Assessment/Plan Assessment/Plan Dysphagia Esophageal Phase COPD Plan to do an EGD today to make sure there is no food bolus blocking the esophagus. Discussed procedure with pt and his ; risks and complications not limited to pain, bleeding, infection and possible esophageal perforation. All questions answered to their satisfaction. Clinical Quality Measures DVT/VTE Risk/Contraindication: Risk Factor Score Per Nursin RFS Level Per Nursing on Admit: 4+=Very High CHELLE BIANCHI DO Jun 26, 2018 14:30
[2018-06-26] MEDS ORDERED: HURRICAINE EXT TUBE (BENZOCAINE) ONE (14:35)
[2018-06-26] MEDS ORDERED: RT-ALBUTEROL SULF 2.5 MG/3 ML PRE-MIX VIAL ONE (14:41)
[2018-06-26] MEDS ORDERED: PROPOFOL INJECTION 50 ML IV ONE (14:41)
[2018-06-26] MEDS: RT-LEVALBUTEROL (XOPENEX) 1.25 MG/3 ML NEB NON-FORMULARY INH SCH ×2 (15:02→20:43)
--- NOTE | 2018-06-26 15:22 | Progress Note-Post Operative ---
Post-Operative Progess Note Surgeon (s)/Photonics Engineering Technician (s) Surgeon CHELLE BIANCHI DO Photonics Engineering Technician: none Pre-Operative Diagnosis Dysphagia esophageal phase Post-Operative Diagnosis Gastritis with Gastric Ulcers Small Hiatal Hernia Esophagitis Procedure & Operative Findings Date of Procedure 06/26/18 Procedure Performed/Findings EGD with bx Anesthesia Type IV sedation by ELASTIC ATTACHER COVERSTITCH Estimated Blood Loss Estimated blood loss (mL): scant Specimens/Packing Specimens Removed antral bx fundic bx near GE jxn CHELLE BIANCHI DO Jun 26, 2018 15:22
--- NOTE | 2018-06-26 15:24 | Endoscopy Discharge Instruct ---
Endo Procedure/Findings Findings 1.: Gastric Ulcer 2.: Gastritis Discharge Instructions - Activity: You might feel a little sleepy until tomorrow. This is due to the medicine you received to relax you. Until tomorrow, you should: NOT drive a car, operate machinery or power tools. NOT drink any alcoholic beverages. NOT make any important decisions or sign importortant papers. Do not return to work until tomorrow, unless otherwise instructed. Resume previous activities tomorrow. Diet: Start by taking liquids. If you tolerate liquids, advance to solid food. Make an appoinment for one week, Instructions: 1.: EGD in 6-8 weeks Notify Physician - If you experience excessive bleeding, unusual abdominal pain, fever, or chest pain, contact your doctor immediately. Follow-Up: - I have received and understand the above instructions and will call my doctor if I have any further questions. Patient Signature Date Nurse Signature Other (Relationship) CHELLE BIANCHI DO Jun 26, 2018 15:24
[2018-06-26] MEDS ORDERED: PANT40TA2 PO (15:26)
[2018-06-26] MEDS ORDERED: SUCR1TAB36 PO (15:26)
[2018-06-26 16:00] VITALS: BP 116/62
[2018-06-26] MEDS: ENOXAPARIN 40 MG/0.4 ML (LOVENOX) SYR SC SCH (16:50)
--- NOTE | 2018-06-26 17:00 | NUR ---
DR BIANCHI NOTIFIED AND INSTRUCTED NURSE TO HOLD LOVENOX INJECTION, AND ORDER A SOFT DIET.
[2018-06-26] MEDS: RT-ADVAIR HFA 115/21 MCG PER PUFF IH SCH (20:43)
[2018-06-26 21:00] VITALS: BP 115/58
[2018-06-26] MEDS: SUCRALFATE 1 GM (CARAFATE) TAB PO SCH (21:13)
[2018-06-26] MEDS: LORATADINE (CLARITIN) 10 MG TAB PO SCH (21:13)
[2018-06-26] MEDS: PANTOPRAZOLE 40 MG (PROTONIX) TAB PO SCH (21:13)
[2018-06-26] MEDS: ASPIRIN E.C. 81 MG (ECOTRIN) TAB PO SCH (21:14)
[2018-06-26 23:30] VITALS: BP 120/63
--- NOTE | 2018-06-27 04:02 | OPERATIVE REPORT ---
DATE OF SERVICE: PREOPERATIVE DIAGNOSES: Dysphagia, esophageal phase, chronic obstructive pulmonary disease with exacerbation. POSTOPERATIVE DIAGNOSES: 1. Gastric ulcer with gastritis. 2. Esophagitis plus history of chronic obstructive pulmonary disease with exacerbation. 3. Small hiatal hernia. PROCEDURE: EGD with biopsy. SURGEON: Miguel Aaron DO ELECTRICAL INSTRUMENT TECHNICIAN: None. ANESTHESIA: IV sedation by the CLINICAL ASSOCIATE. SPECIMEN: Biopsy from the antrum as well as biopsy from the fundus. BLOOD LOSS: Scant. FLUIDS: Per anesthesia. POSTOPERATIVE CONDITION: Stable. INDICATION FOR PROCEDURE: The patient is a 67-year-old male who was admitted to the hospital originally with a COPD exacerbation, but then he had some trouble swallowing, felt like something got stuck and he was coughing up his food and liquids, felt to be dysphagia of the esophageal phase. FINDINGS: The patient had ulcers near the GE junction. These might have been Melvin ulcers. 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 Picture of all this were taken. PROCEDURE NOTE: After informed consent was obtained, the patient was brought to the endoscopy suite, placed in the bed in left lateral decubitus position. He was administered IV sedation by the CLINICAL ASSOCIATE who then monitored his vitals the entire time, heart rate, blood pressure and pulse ox and the scope was inserted down the mouth through the esophagus and into the stomach. Upon entry into the stomach, looked like there had been some bleeding, pushed towards the antrum and saw the pylorus, looked like there was a little bit of gastritis here pushed through into the small intestine and first and second portion of the duodenum looked good. Pulled back into the antrum, did a biopsy of the antrum and then retroflexed the scope, saw what looked to be ulcers with a clot in them right at the almost just below the GE junction right in where his hiatal hernia would be making these possibly Melvin ulcers. Did a biopsy near these, did try not to biopsy right in the ulcer because it looked like it was bleeding, so a little bit of esophagitis, took pictures of this. Also saw what looked like a small hiatal hernia and then while pulling the scope up the esophagus and out, at the very top of the esophagus, saw an intestinal implant, took a picture of this and then removed the scope. The patient tolerated the procedure. He was recovered in endoscopy and then sent back to his room. Job ID: [id number] DocumentID: [id number] Dictated Date: 06/26/2018 17:05:51 Hall Manager Date: 06/27/2018 03:00:48 Dictated By: MIGUEL AARON DO
[2018-06-27] MEDS: SUCRALFATE 1 GM (CARAFATE) TAB PO SCH ×2 (05:56→11:39)
[2018-06-27] MEDS: NS IV 1000 ML 1,000 ML IV SCH (05:56)
[2018-06-27] MEDS: PANTOPRAZOLE 40 MG (PROTONIX) TAB PO SCH (05:56)
[2018-06-27] MEDS: RT-LEVALBUTEROL (XOPENEX) 1.25 MG/3 ML NEB NON-FORMULARY INH SCH (06:21)
[2018-06-27] MEDS: RT-ADVAIR HFA 115/21 MCG PER PUFF IH SCH (06:22)
--- NOTE | 2018-06-27 08:23 | Pulmonary Progress Note ---
Subjective Time Seen by a Provider: 08:23 Subjective/Events-last exam PT had EGD yesterday Sepsis Event Evaluation Height, Weight, BMI Height: 5'6.00" Weight: 211lbs. 1.6oz. 95.387382pp; 32.0 BMI Method: Focused Exam Lactate Level 06/24/18 13:50: Lactic Acid Level 1.67 Exam Exam Vital Signs Date Time Temp Pulse Resp B/P (MAP) Pulse Ox O2 Delivery O2 Flow Rate FiO2 06/27/18 06:22 93 Room Air 06/27/18 06:22 95 Room Air 06/26/18 23:30 97.9 84 18 120/63 (82) 95 Room Air 06/26/18 21:00 97 115/58 (77) 06/26/18 20:54 95 Room Air 06/26/18 20:44 93 Room Air 06/26/18 20:00 Room Air 06/26/18 16:00 96.8 91 18 116/62 (80) 93 Room Air I & O 06/27/18 07:00 Intake Total 4360 ml Balance 4360 ml Height & Weight Height: 5'6.00" Weight: 211lbs. 1.6oz. 95.124641ui; 32.0 BMI Method: General Appearance: No Apparent Distress, WD/WN, Chronically ill HEENT: PERRL/EOMI Neck: Full Range of Motion, Normal Inspection, Non Tender, Supple, Carotid Bruit Respiratory: Chest Non Tender, No Accessory Muscle Use, No Respiratory Distress , Crackles, Wheezing Cardiovascular: Regular Rate, Rhythm, No Edema, No Gallop, No JVD, No Murmur, Normal Peripheral Pulses Capillary Refill: Less Than 3 Seconds Gastrointestinal: normal bowel sounds, non tender, soft, no organomegaly, no pulsatile mass Extremity: Normal Capillary Refill, Normal Inspection, Normal Range of Motion, Non Tender, No Calf Tenderness, No Pedal Edema Neurologic/Psychiatric: Alert, Oriented x3, No Motor/Sensory Deficits, Normal Mood/Affect Skin: Normal Color, Warm/Dry Lymphatic: No Adenopathy Results Lab Laboratory Tests 06/26/18 09:36 Assessment/Plan Assessment/Plan AECOPD with hypoxia -Xopenex , advair - Oxygen to keep O2 sat 88-92% - change to prednisone taper --ABG shows C02 47 -CT shows only COPD Dysphagia with Gastritis/esophagitis with gastric ulcer s/p EGD -Protonix -Aspiration precautions -Dysphagia diet Sinus Tachycardia- resolved -Change SVN to Xopenex Tobacco use disorder -encourage cessation Hyperlipidemia, chronic - continue home medications DIOR MORGAN DO Jun 27, 2018 08:23
[2018-06-27 08:41] VITALS: BP 105/62
[2018-06-27] MEDS: predniSONE 10 MG TAB PO SCH (08:58)
[2018-06-27] MEDS: meTOprolol TARTRATE 25 MG (LOPRESSOR) TABLET PO SCH (09:13)
[2018-06-27] MEDS ORDERED: PRED10TA22 PO (12:10)
[2018-06-27] MEDS ORDERED: CODE118S4 PO (12:10)
--- NOTE | 2018-06-27 12:11 | Discharge Summary-Hospitalist ---
Diagnosis/Chief Complaint Date of Admission Jun 24, 2018 at 11:48 Date of Discharge Discharge Date: Jun 27, 2018 Admission Diagnosis Assessment: Acute exacerbation of COPD new onset Current smoker Appears to be at risk for obstructive sleep apnea Plan: Pulmonary meds Oxygen Discharge Diagnosis (1) COPD exacerbation Status: Acute (2) Smoker Status: Chronic (3) Tachycardia Status: Resolved (4) Anxiety Status: Acute (5) Dysphagia Status: Acute (6) Gastric ulcer Status: Acute Discharge Summary Discharge Physical Exam Allergies: Coded Allergies: No Known Drug Allergies (Unverified , 06/24/18) Vitals & I&Os Vital Signs Date Time Temp Pulse Resp B/P (MAP) Pulse Ox O2 Delivery O2 Flow Rate FiO2 06/27/18 13:00 74 18 105/62 94 Room Air 06/27/18 08:41 97.2 06/26/18 08:00 2.00 General Appearance: No Apparent Distress, WD/WN, Chronically ill Respiratory: Chest Non Tender, No Accessory Muscle Use, No Respiratory Distress , Wheezing (subtle) Cardiovascular: Regular Rate, Rhythm, No Edema, No Gallop, No JVD, No Murmur, Normal Peripheral Pulses Neurologic/Psychiatric: Alert, Oriented x3, No Motor/Sensory Deficits, Normal Mood/Affect Hospital Course Hospital course: Patient was admitted as direct admit from Dr. Diaz's office due to status asthmaticus due to severe COPD with exacerbation new onset. He had received 23 rounds of antibiotics from primary care provider with injection of steroids and oral prednisone but still worsened to the point of hypoxia and continuous cough. He was given IV steroids nebulizer treatments and oxygen supplementation along with Dr. Diaz's expertise along with the addition of multiple meds to help with the exacerbation. Due to dysphasia and smoking history and possible relevance to flareup of COPD with gastric acid he did undergo an EGD by Dr. Aaron and discovered gastritis so placed on proton pump inhibitor and stopped aspirin. On day of discharge wheezing was still present but much improved and felt really good and agreed for discharge with close follow-up with Dr. Diaz and primary care provider on Friday. Labs (last 24 hrs) Microbiology 06/24/18 Gram Stain - Final, Complete 06/24/18 Sputum Culture - Final, Complete Usual upper respiratory jen Patient resulted labs reviewed. Discussion & Recommendations Discharge Planning: <30 minutes discharge planning Discharge Home Medications: Active Scripts Active Prednisone 10 Mg Tab.ds.pk 10 Mg PO DAILY Take 6 tabs(60mg)daily,decrease by 1 tab(10MG)daily. Promethazine-Codeine Syrup (Promethazine HCl/Codeine) 118 Ml Syrup 5 Ml PO Q4H PRN Protonix (Pantoprazole Sodium) 40 Mg Tablet.dr 40 Mg PO BID Carafate (Sucralfate) 1 Gm Tablet 1 Gm PO QIDACHS Reported Loratadine 10 Mg Tablet 10 Mg PO HS Preservision Areds Tablet (Vit A/Vit C/Vit E/Zinc/Copper) 1 Each Tablet 1 Tab PO HS Ventolin Hfa (Albuterol Sulfate) 18 Gm Hfa.aer.ad 2 Puff INH QID PRN Iprat-Albut 0.5-3(2.5) mg/3 ml (Ipratropium/Albuterol Sulfate) 3 Ml Ampul.neb 3 Ml NEB QID PRN Budesonide 0.25 Mg/2 Ml Ampul.neb 0.25 Mg NEB BID Brovana (Arformoterol Tartrate) 15 Mcg/2 Ml Vial.neb 15 Mcg NEB BID Instructions to patient/family Please see electronic discharge instructions given to patient. Clinical Quality Measures DVT/VTE Risk/Contraindication: Risk Factor Score Per Nursin RFS Level Per Nursing on Admit: 4+=Very High Problem Qualifiers (1) Dysphagia: Dysphagia type: pharyngoesophageal phase Qualified Codes: R13.14 - Dysphagia , pharyngoesophageal phase (2) Gastric ulcer: Gastric ulcer chronicity: acute Gastric ulcer complication status: unspecified whether hemorrhage or perforation present Qualified Codes: K25.3 - Acute gastric ulcer without hemorrhage or perforation PASTORA BROWNE DO Jun 27, 2018 12:11
[2018-06-27 13:00] VITALS: BP 105/62
== END 2018-06-27 13:00 | disposition home or self-care (01) | DRG 191 ==
LOC: 4TH 11:48
PROVIDERS: ADMIT Internal Medicine; ATTEND Internal Medicine
PROC: 0DB68ZX Excision of Stomach, Via Natural or Artificial Opening Endoscopic, Diagnostic (ICD-10-PCS; 2018-06-26)
PROC: 0DB78ZX Excision of Stomach, Pylorus, Via Natural or Artificial Opening Endoscopic, Diagnostic (ICD-10-PCS; principal; 2018-06-26 14:35)
DX: J44.1 Chronic obstructive pulmonary disease with (acute) exacerbation (principal); J98.11 Atelectasis; K25.3 Acute gastric ulcer without hemorrhage or perforation; R09.02 Hypoxemia; R00.0 Tachycardia, unspecified; R13.14 Dysphagia, pharyngoesophageal phase; K29.70 Gastritis, unspecified, without bleeding; K20.9 Esophagitis, unspecified; K44.9 Diaphragmatic hernia without obstruction or gangrene; F41.9 Anxiety disorder, unspecified; E78.5 Hyperlipidemia, unspecified; J30.2 Other seasonal allergic rhinitis; F17.210 Nicotine dependence, cigarettes, uncomplicated; Z87.01 Personal history of pneumonia (recurrent)
CPT/HCPCS: 36415; 36600; 71045; 71260; 80048; 80053; 82805; 83605; 83735; 83880; 84100; 84484; 85007; 85025; 85027; 87070; 87205; 93005; 93970; 94640; 94760; 94761

== ENCOUNTER → 2018-09-23 | Outpatient (CLI) | payer MEDICARE, OTHER ==
[~2018-09-23] MED LIST: ALBU18HF2 INH; ARFO15VI3 NEB; ASPI-983 PO; BETA1TAB15 PO; BUDE0.256 NEB; CODE118S4 PO; IPRA3AMP31 NEB; LORA10TA7 PO; PANT40TA2 PO; PRED10TA22 PO; RT-ALBUTEROL SULF 2.5 MG/3 ML PRE-MIX VIAL INH ONE; SUCR1TAB36 PO
== END ==
LOC: RT 08:43
PROVIDERS: ATTEND Nurse Practitioner Family
DX: J44.9 Chronic obstructive pulmonary disease, unspecified (principal)
CPT/HCPCS: 94060; 94726; 94729

== ENCOUNTER → 2018-10-06 | Outpatient (CLI) | payer MEDICARE, OTHER ==
[~2018-10-06] MED LIST changes: +CETI10TA17 PO; +FLUT1DIS26 IH; -RT-ALBUTEROL SULF 2.5 MG/3 ML PRE-MIX VIAL INH ONE; +TIOT18CA2 IH
[2018-10-06 15:20] LABS: ABG BASE EXCESS 0.8 MMOL/L (-2.5-2.5); ABG OXYGEN SATURATION 94 % (94-100); ABG PCO2 46 MMHG (35-45); ABG PH 7.36 (7.37-7.43); ABG PO2 64 MMHG (79-93); ABG TCO2 27.2 MMOL/L (21.0-31.0)
[2018-10-06 15:21] LABS: ALLENS TEST POSITIVE; PATIENT TEMP 97.7; VENTILATOR NO
== END ==
LOC: RT 14:32
PROVIDERS: ATTEND Nurse Practitioner Family
DX: J44.9 Chronic obstructive pulmonary disease, unspecified (principal); E66.9 Obesity, unspecified; R06.02 Shortness of breath; R09.02 Hypoxemia; R91.8 Other nonspecific abnormal finding of lung field; J30.9 Allergic rhinitis, unspecified; J98.4 Other disorders of lung; G47.10 Hypersomnia, unspecified; G47.36 Sleep related hypoventilation in conditions classified elsewhere; Z72.0 Tobacco use
CPT/HCPCS: 36600; 82805

== ENCOUNTER → 2018-10-06 | Outpatient (CLI) | payer MEDICARE, OTHER ==
[~2018-10-06] VITALS: Ht 167.6 cm; Wt 95.8 kg
== END | disposition home or self-care (01) ==
LOC: PREOP 07:08
PROVIDERS: ATTEND Surgery
DX: Z01.818 Encounter for other preprocedural examination (principal)

== ENCOUNTER → 2018-10-07 | Outpatient (CLI) | payer MEDICARE, OTHER ==
[~2018-10-07] MED LIST changes: +HOLD METFORMIN - RECEIVED CONTRAST 20 ML VIAL IV SCH; +IOHEXOL 350 MG/ML 100 ML (OMNIPAQUE 350) VIAL IV ONE
[2018-10-07 15:40] LABS: BUN/CREATININE RATIO 11; CREATININE SERUM 1.05 MG/DL (0.60-1.30); GFR ESTIMATED > 60
--- NOTE | 2018-10-07 18:05 | Diagnostic Imaging Report ---
PROCEDURE: CT chest with contrast only. TECHNIQUE: Multiple contiguous axial images were obtained through the chest after administration of intravenous contrast. Auto Exposure Controls were utilized during the CT exam to meet ALARA standards for radiation dose reduction. INDICATION: COPD, difficulty breathing. COMPARISON: Exam compared with 06/24/2018. FINDINGS: Changes of centrilobular emphysema stable and chronic. No lung mass or suspicious pulmonary nodularity. No pathological appearing thoracic nodes. No infiltrate, effusion or pneumothorax. Aorta is patent and nonaneurysmal. There is coronary arterial atherosclerotic calcifications involving left-sided branches. The upper abdomen is unremarkable. IMPRESSION: Centrilobular emphysema, chronic. No mass, infiltrate, effusion or acute finding. Dictated by: Dictated on workstation # [id number]
== END ==
LOC: RAD 14:58
PROVIDERS: ATTEND Nurse Practitioner Family
DX: J43.2 Centrilobular emphysema (principal); E66.9 Obesity, unspecified; G47.34 Idiopathic sleep related nonobstructive alveolar hypoventilation; J30.9 Allergic rhinitis, unspecified; J98.4 Other disorders of lung; G47.10 Hypersomnia, unspecified; G47.36 Sleep related hypoventilation in conditions classified elsewhere; Z72.0 Tobacco use
CPT/HCPCS: 36415; 71260; 82565; 84520

== ENCOUNTER 2018-10-12 10:17 | Day surgery (SDC) | payer MEDICARE, OTHER ==
[~2018-10-12] VITALS: Ht 167.6 cm; Wt 95.8 kg
[~2018-10-12 10:17] MED LIST changes: -HOLD METFORMIN - RECEIVED CONTRAST 20 ML VIAL IV SCH; -IOHEXOL 350 MG/ML 100 ML (OMNIPAQUE 350) VIAL IV ONE
[2018-10-12] MEDS ORDERED: LACTATED RINGERS 1,000 ML IV ONE (10:24)
[2018-10-12] MEDS ORDERED: LACTATED RINGERS 1,000 ML IV STA (10:27)
--- OUTSIDE RECORDS SUMMARY | 2018-10-12 10:28 | XMS REPORT | Continuity of Care Document ---
Author Organization Unknown Address Unknown Allergies Active Description Code Type Severity Reaction Onset Reported/Identified Relationship to Patient Clinical Status Yes No Allergy Information Available [id number] Drug Allergy Unknown N/A 2018 Yes No Known Drug Allergies [id number] Drug Allergy Unknown N/A 06/24/2018 Medications There is no data. Problems Date Dx Coded Attending Type Code Diagnosis Diagnosed By 10/12/2015 DIOR MORGAN DO Ot E88.01 UEUCP-8-MEYPPCHDMPF DEFICIENCY 10/12/2015 DIOR MORGAN DO Ot J44.9 CHRONIC OBSTRUCTIVE PULMONARY DISEASE, U 10/12/2015 DIOR MORGAN DO Ot Z72.0 TOBACCO USE 10/16/2015 MARTIN ZHENG WOOD LAST MAKER Ot G47.10 HYPERSOMNIA, UNSPECIFIED 10/16/2015 ADRIENNE ZHENGINE E WOOD LAST MAKER Ot G47.33 OBSTRUCTIVE SLEEP APNEA (ADULT) (PEDIATR 10/17/2015 ADRIENNE ZHENGINE E WOOD LAST MAKER Ot G47.10 HYPERSOMNIA, UNSPECIFIED 10/17/2015 NORM, MARTIN E WOOD LAST MAKER Ot G47.33 OBSTRUCTIVE SLEEP APNEA (ADULT) (PEDIATR 10/17/2015 ADRIENNE ZHENGINE E WOOD LAST MAKER Ot G47.36 SLEEP RELATED HYPOVENTILATION IN CONDITI 10/17/2015 ADRIENNE ZHENGINE E WOOD LAST MAKER Ot G47.61 PERIODIC LIMB MOVEMENT DISORDER 10/17/2015 MARTIN ZHENG WOOD LAST MAKER Ot G47.9 SLEEP DISORDER, UNSPECIFIED 10/17/2015 ADRIENNE ZHENGINE E WOOD LAST MAKER Ot R06.83 SNORING 11/02/2015 MARTIN ZHENG WOOD LAST MAKER Ot G47.36 SLEEP RELATED HYPOVENTILATION IN CONDITI 11/02/2015 MARTIN ZHENG WOOD LAST MAKER Ot G47.61 PERIODIC LIMB MOVEMENT DISORDER 11/02/2015 MARTIN ZHENG WOOD LAST MAKER Ot R06.83 SNORING 04/01/2016 DIOR MORGAN DO Ot E88.01 GVEBC-5-LMUWZPAEDJT DEFICIENCY 04/01/2016 CATHY DOBSONDIOR Ot J44.9 CHRONIC OBSTRUCTIVE PULMONARY DISEASE, U 04/01/2016 DIOR MORGAN DO Ot Z72.0 TOBACCO USE 04/01/2016 CATHY DOBSON DIOR Marvin Ot E88.01 NBWZV-2-MZCRVRFVEVG DEFICIENCY 04/01/2016 CATHY DOBSONDIOR Ot J44.9 CHRONIC OBSTRUCTIVE PULMONARY DISEASE, U 04/01/2016 DIOR MORGAN DO Yon Ot Z72.0 TOBACCO USE 04/01/2016 MARTIN ZHENG WOOD LAST MAKER Ot J44.9 CHRONIC OBSTRUCTIVE PULMONARY DISEASE, U 04/01/2016 MARTIN ZHENG WOOD LAST MAKER Ot J44.9 CHRONIC OBSTRUCTIVE PULMONARY DISEASE, U 04/01/2016 MARTIN ZHENG WOOD LAST MAKER Ot J44.9 CHRONIC OBSTRUCTIVE PULMONARY DISEASE, U 04/02/2016 MARTIN ZHENG WOOD LAST MAKER Ot J44.9 CHRONIC OBSTRUCTIVE PULMONARY DISEASE, U 04/02/2016 MARTIN ZHENG WOOD LAST MAKER Ot J44.9 CHRONIC OBSTRUCTIVE PULMONARY DISEASE, U 04/02/2016 MARTIN ZHENG WOOD LAST MAKER Ot R93.8 ABNORMAL FINDINGS ON DIAGNOSTIC IMAGING 04/02/2016 MARTIN ZHENG WOOD LAST MAKER Ot Z72.0 TOBACCO USE 04/07/2016 MARTIN ZHENG WOOD LAST MAKER Ot J44.9 CHRONIC OBSTRUCTIVE PULMONARY DISEASE, U 04/07/2016 MARTIN ZHENG WOOD LAST MAKER Ot R93.8 ABNORMAL FINDINGS ON DIAGNOSTIC IMAGING 04/07/2016 MARTIN ZHENG WOOD LAST MAKER Ot Z72.0 TOBACCO USE 04/23/2016 MARTIN ZHENG WOOD LAST MAKER Ot J44.9 CHRONIC OBSTRUCTIVE PULMONARY DISEASE, U 04/23/2016 MARTIN ZHENG WOOD LAST MAKER Ot R93.8 ABNORMAL FINDINGS ON DIAGNOSTIC IMAGING 04/23/2016 MARTIN ZHENG WOOD LAST MAKER Ot Z72.0 TOBACCO USE 07/24/2017 MARTIN ZHENG WOOD LAST MAKER Ot E88.01 JSITA-9-RHARUFODACK DEFICIENCY 07/24/2017 MARTIN ZHENG WOOD LAST MAKER Ot J43.9 EMPHYSEMA, UNSPECIFIED 07/24/2017 MARTIN ZHENG WOOD LAST MAKER Ot R59.0 LOCALIZED ENLARGED LYMPH NODES 07/24/2017 MARTIN ZHENG WOOD LAST MAKER Ot Z72.0 TOBACCO USE 08/08/2017 MARTIN ZHENG WOOD LAST MAKER Ot E88.01 DKTPX-0-VWDIZKYZHSX DEFICIENCY 08/08/2017 MARTIN ZHENG WOOD LAST MAKER Ot J43.9 EMPHYSEMA, UNSPECIFIED 08/08/2017 MARTIN ZHENG WOOD LAST MAKER Ot R59.0 LOCALIZED ENLARGED LYMPH NODES 08/08/2017 MARTIN ZHENG WOOD LAST MAKER Ot Z72.0 TOBACCO USE 08/18/2017 DIOR MORGAN DO Ot E88.01 IMQGT-9-TIRLDGFBVDI DEFICIENCY 08/18/2017 DIOR MORGAN DO Ot J44.9 CHRONIC OBSTRUCTIVE PULMONARY DISEASE, U 08/18/2017 DIOR MORGAN DO Ot Z72.0 TOBACCO USE 08/18/2017 MARTIN ZHENG APRN Ot J44.9 CHRONIC OBSTRUCTIVE PULMONARY DISEASE, U 08/18/2017 MARTIN ZHENG WOOD LAST MAKER Ot R93.8 ABNORMAL FINDINGS ON DIAGNOSTIC IMAGING 08/18/2017 MARTIN ZHENG WOOD LAST MAKER Ot Z72.0 TOBACCO USE 08/18/2017 MARTIN ZHENG WOOD LAST MAKER Ot E88.01 TVQXH-2-NITDBWMYUBW DEFICIENCY 08/18/2017 MARTIN ZHENG WOOD LAST MAKER Ot J43.9 EMPHYSEMA, UNSPECIFIED 08/18/2017 MARTIN ZHENG WOOD LAST MAKER Ot R59.0 LOCALIZED ENLARGED LYMPH NODES 08/18/2017 MARTIN ZHENG WOOD LAST MAKER Ot Z72.0 TOBACCO USE 10/02/2017 DIOR MORGAN [...] G47.36 SLEEP RELATED HYPOVENTILATION IN CONDITI 10/08/2017 DIOR MORGAN DO Ot J44.9 CHRONIC OBSTRUCTIVE PULMONARY DISEASE, U 10/08/2017 CATHY DODIOR M Ot R06.02 SHORTNESS OF BREATH 10/09/2017 DIOR MORGAN DO Ot E66.9 OBESITY, UNSPECIFIED 10/09/2017 CATHY DODIOR [...] DO Ot R06.02 SHORTNESS OF BREATH 10/30/2017 CATHY DODIOR Ot E66.9 OBESITY, UNSPECIFIED 10/30/2017 DIOR MORGAN DO M Ot G47.36 SLEEP RELATED HYPOVENTILATION IN CONDITI 10/30/2017 DIOR MORGAN DO Ot J44.9 CHRONIC OBSTRUCTIVE PULMONARY DISEASE, U 10/30/2017 CATHY DODIOR M Ot R06.02 SHORTNESS OF BREATH 11/04/2017 CATHY DODIOR M Ot E66.9 OBESITY, UNSPECIFIED 11/04/2017 DIOR MORGAN DO M Ot G47.36 SLEEP RELATED HYPOVENTILATION IN CONDITI 11/04/2017 DIOR MORGAN DO Ot J44.9 CHRONIC OBSTRUCTIVE PULMONARY DISEASE, U 11/04/2017 DIOR MORGAN DO M Ot R06.02 SHORTNESS OF BREATH 11/11/2017 DIOR MORGAN DO Ot E66.9 OBESITY, UNSPECIFIED 11/11/2017 CATHY DODIOR M Ot G47.36 SLEEP RELATED HYPOVENTILATION IN CONDITI 11/11/2017 DIOR MORGAN DO Ot J44.9 CHRONIC OBSTRUCTIVE PULMONARY DISEASE, U 11/11/2017 DIOR MORGAN DO M Ot R06.02 SHORTNESS OF BREATH 11/13/2017 DIOR MORGAN DO M Ot E66.9 OBESITY, UNSPECIFIED 11/13/2017 DIOR MORGAN DO M Ot G47.36 SLEEP RELATED HYPOVENTILATION IN CONDITI 11/13/2017 DIOR MORGAN DO Ot J44.9 CHRONIC OBSTRUCTIVE PULMONARY DISEASE, U 11/13/2017 CATHY DODIOR M Ot R06.02 SHORTNESS OF BREATH 11/20/2017 DIOR MORGAN DO M Ot E66.9 OBESITY, UNSPECIFIED 11/20/2017 CATHY DODIOR M Ot G47.36 SLEEP RELATED HYPOVENTILATION IN CONDITI 11/20/2017 CATHY DODIOR M Ot J44.9 CHRONIC OBSTRUCTIVE PULMONARY DISEASE, U 11/20/2017 DIOR MORGAN DO M Ot R06.02 SHORTNESS OF BREATH 11/25/2017 CATHY DO, DIOR M Ot E66.9 OBESITY, UNSPECIFIED 11/25/2017 CATHY DODIOR M Ot G47.36 SLEEP RELATED HYPOVENTILATION IN CONDITI 11/25/2017 CATHY DODIOR Ot J44.9 CHRONIC OBSTRUCTIVE PULMONARY DISEASE, U 11/25/2017 CATHY DODIOR M Ot R06.02 SHORTNESS OF BREATH 11/27/2017 CATHY DODIOR M Ot E66.9 OBESITY, UNSPECIFIED 11/27/2017 CATHY DODIOR M Ot G47.36 SLEEP RELATED HYPOVENTILATION IN CONDITI 11/27/2017 CATHY DODIOR M Ot J44.9 CHRONIC OBSTRUCTIVE PULMONARY DISEASE, U 11/27/2017 CATHY DODIOR M Ot R06.02 SHORTNESS OF BREATH 11/30/2017 CATHY DODIOR M Ot E66.9 OBESITY, UNSPECIFIED 11/30/2017 CATHY DODIOR M Ot G47.36 SLEEP RELATED HYPOVENTILATION IN CONDITI 11/30/2017 DOIR MORGAN DO M Ot J44.9 CHRONIC OBSTRUCTIVE PULMONARY DISEASE, U 11/30/2017 CATHY DODIOR M Ot R06.02 SHORTNESS OF BREATH 12/03/2017 CATHY DODIOR M Ot E66.9 OBESITY, UNSPECIFIED 12/03/2017 CATHY DODIOR M Ot G47.36 SLEEP RELATED HYPOVENTILATION IN CONDITI 12/03/2017 DIOR MORGAN DO M Ot J44.9 CHRONIC OBSTRUCTIVE PULMONARY DISEASE, U 12/03/2017 CATHY DODIOR M Ot R06.02 SHORTNESS OF BREATH 12/04/2017 CATHY DODIOR M Ot E66.9 OBESITY, UNSPECIFIED 12/04/2017 CATHY DODIOR M Ot G47.36 SLEEP RELATED HYPOVENTILATION IN CONDITI 12/04/2017 CATHY DODIOR M Ot J44.9 CHRONIC OBSTRUCTIVE PULMONARY DISEASE, U 12/04/2017 CATHY DODIOR M Ot R06.02 SHORTNESS OF BREATH 12/09/2017 CATHY DODIOR M Ot E66.9 OBESITY, UNSPECIFIED 12/09/2017 CATHY DODOIR M Ot G47.36 SLEEP RELATED HYPOVENTILATION IN CONDITI 12/09/2017 CATHY DIOR DOBSON Ot J44.9 CHRONIC OBSTRUCTIVE PULMONARY DISEASE, U 12/09/2017 DIOR MORGAN DO Ot R06.02 SHORTNESS OF BREATH 01/04/2018 DIOR MORGAN DO Ot E66.9 OBESITY, UNSPECIFIED 01/04/2018 DIOR MORGAN DO M Ot G47.36 SLEEP RELATED HYPOVENTILATION IN CONDITI 01/04/2018 DIOR MORGAN DO Ot J44.9 CHRONIC OBSTRUCTIVE PULMONARY DISEASE, U 01/04/2018 DIOR MORGAN DO Ot R06.02 SHORTNESS OF BREATH 03/01/2018 DIOR MORGAN DO Ot E66.9 OBESITY, UNSPECIFIED 03/01/2018 DIOR MORGAN DO M Ot G47.36 SLEEP RELATED HYPOVENTILATION IN CONDITI 03/01/2018 DIOR MORGAN DO Ot J44.9 CHRONIC OBSTRUCTIVE PULMONARY DISEASE, U 03/01/2018 DIOR MORGAN DO Ot R06.02 SHORTNESS OF BREATH 03/03/2018 DIOR MORGAN DO Ot E66.9 OBESITY, UNSPECIFIED 03/03/2018 DIOR MORGAN DO M Ot G47.36 SLEEP RELATED HYPOVENTILATION IN CONDITI 03/03/2018 DIOR MORGAN DO Ot J44.9 CHRONIC OBSTRUCTIVE PULMONARY DISEASE, U 03/03/2018 DIOR MORGAN DO Ot R06.02 SHORTNESS OF BREATH 03/10/2018 MARTIN ZHENG APRN Ot E88.01 JXEND-8-FJTCCRRFLVK DEFICIENCY 03/10/2018 MARTIN ZHENG APRN Ot J43.9 EMPHYSEMA, UNSPECIFIED 03/10/2018 MARTIN ZHENG APRN Ot R59.0 LOCALIZED ENLARGED LYMPH NODES 03/10/2018 MARTIN ZHENG APRN Ot Z72.0 TOBACCO USE 06/24/2018 DIOR MORGAN DO Ot E66.9 OBESITY, UNSPECIFIED 06/24/2018 DIOR MORGAN DO M Ot G47.36 SLEEP RELATED HYPOVENTILATION IN CONDITI 06/24/2018 DIOR MORGAN DO Ot J44.9 CHRONIC OBSTRUCTIVE PULMONARY DISEASE, U 06/24/2018 DIOR MORGAN DO M Ot R06.02 SHORTNESS OF BREATH 06/24/2018 DIOR MORGAN DO Ot E66.9 OBESITY, UNSPECIFIED 06/24/2018 DIOR MORGAN DO Ot G47.36 SLEEP RELATED HYPOVENTILATION IN CONDITI 06/24/2018 DIOR MORGAN DO Ot J44.9 CHRONIC OBSTRUCTIVE PULMONARY DISEASE, U 06/24/2018 CATHY DODIOR Ot R06.02 SHORTNESS OF BREATH 06/24/2018 CATHY DODIOR Ot E66.9 OBESITY, UNSPECIFIED 06/24/2018 CATHY DODIOR Ot G47.36 SLEEP RELATED HYPOVENTILATION IN CONDITI 06/24/2018 CATHY DODIOR Ot J44.9 CHRONIC OBSTRUCTIVE PULMONARY DISEASE, U 06/24/2018 CATHY DODIOR Ot R06.02 SHORTNESS OF BREATH 06/25/2018 BROWNE DO, PASTORA Ot E78.5 HYPERLIPIDEMIA, UNSPECIFIED 06/25/2018 BROWNE DO, PASTORA Ot F17.210 NICOTINE DEPENDENCE, CIGARETTES, UNCOMPL 06/25/2018 BROWNE DO PASTORA Ot J30.2 OTHER SEASONAL ALLERGIC RHINITIS 06/25/2018 HOLLIE DO PASTORA Ot J44.1 CHRONIC OBSTRUCTIVE PULMONARY DISEASE W 06/25/2018 BROWNE DO, PASTORA Ot R09.02 HYPOXEMIA 06/25/2018 BROWNE DO, PASTORA Ot Z87.01 PERSONAL HISTORY OF PNEUMONIA (RECURRENT 06/26/2018 BROWNE DO, PASTORA Ot E78.5 HYPERLIPIDEMIA, UNSPECIFIED 06/26/2018 BROWNE DO, PASTORA Ot F17.210 NICOTINE DEPENDENCE, CIGARETTES, UNCOMPL 06/26/2018 BROWNE DO PASTORA Ot J30.2 OTHER SEASONAL ALLERGIC RHINITIS 06/26/2018 BROWNE DO PASTORA Ot J44.1 CHRONIC OBSTRUCTIVE PULMONARY DISEASE W 06/26/2018 BROWNE DO, PASTORA Ot R09.02 HYPOXEMIA 06/26/2018 BROWNE DO, PASTORA Ot Z87.01 PERSONAL HISTORY OF PNEUMONIA (RECURRENT 06/26/2018 BROWNE DO, PASTORA Ot E78.5 HYPERLIPIDEMIA, UNSPECIFIED 06/26/2018 BROWNE DO, PASTORA Ot F17.210 NICOTINE DEPENDENCE, CIGARETTES, UNCOMPL 06/26/2018 BROWNE DO, PASTORA Ot J30.2 OTHER SEASONAL ALLERGIC RHINITIS 06/26/2018 BROWNE DO PASTORA Ot J44.1 CHRONIC OBSTRUCTIVE PULMONARY DISEASE W 06/26/2018 BROWNE DO, PASTORA Ot R09.02 HYPOXEMIA 06/26/2018 HOLLIE DOBSON PASTORA Ot Z87.01 PERSONAL HISTORY OF PNEUMONIA (RECURRENT 06/27/2018 HOLLIE DOBSON PASTORA Ot E78.5 HYPERLIPIDEMIA, UNSPECIFIED 06/27/2018 BROWNE DO PASTORA Ot F17.210 NICOTINE DEPENDENCE, CIGARETTES, UNCOMPL 06/27/2018 HOLLIE DOBSON PASTORA Ot J30.2 OTHER SEASONAL ALLERGIC RHINITIS 06/27/2018 HOLLIE DOBSON PASTORA Ot J44.1 CHRONIC OBSTRUCTIVE PULMONARY DISEASE W 06/27/2018 BROWNE DO PASTORA Ot R09.02 HYPOXEMIA 06/27/2018 HOLLIE DOBSON PASTORA Ot Z87.01 PERSONAL HISTORY OF PNEUMONIA (RECURRENT 06/27/2018 HOLLIE DOBSON PASTORA Ot E78.5 HYPERLIPIDEMIA, UNSPECIFIED 06/27/2018 BROWNE DO PASTORA Ot F17.210 NICOTINE DEPENDENCE, CIGARETTES, UNCOMPL 06/27/2018 HOLLIE DOBSON PASTORA Ot F41.9 ANXIETY DISORDER, UNSPECIFIED 06/27/2018 HOLLIE DOBSON PASTORA Ot J30.2 OTHER SEASONAL ALLERGIC RHINITIS 06/27/2018 HOLLIE DOBSON PASTORA Ot J44.1 CHRONIC OBSTRUCTIVE PULMONARY DISEASE W 06/27/2018 HOLLIE DOBSON PASTORA Ot J98.11 ATELECTASIS 06/27/2018 HOLLIE DOBSON PASTORA Ot K20.9 ESOPHAGITIS, UNSPECIFIED 06/27/2018 HOLLIE DOBSON PASTORA Ot K25.3 ACUTE GASTRIC ULCER WITHOUT HEMORRHAGE O 06/27/2018 HOLLIE DOBSON PASTORA Ot K29.70 GASTRITIS, UNSPECIFIED, WITHOUT BLEEDING 06/27/2018 ASTRID BROWNE DOI Ot K44.9 DIAPHRAGMATIC HERNIA WITHOUT OBSTRUCTION 06/27/2018 HOLLIE DOBSON PASTORA Ot R00.0 TACHYCARDIA, UNSPECIFIED 06/27/2018 HOLLIE DOBSON PASTORA Ot R09.02 HYPOXEMIA 06/27/2018 HOLLIE DOBSON PASTORA Ot R13.14 DYSPHAGIA, PHARYNGOESOPHAGEAL PHASE 06/27/2018 HOLLIE DOBSON PASTORA Ot Z87.01 PERSONAL HISTORY OF PNEUMONIA (RECURRENT 07/30/2018 DIOR MORGAN DO Ot E88.01 OAVUG-0-TQHTBBBKDBX DEFICIENCY 07/30/2018 DIOR MORGAN DO Ot J44.9 CHRONIC OBSTRUCTIVE PULMONARY DISEASE, U 07/30/2018 DIOR MORGAN DO Ot Z72.0 TOBACCO USE 07/30/2018 MARTIN ZHENG APRN Ot J44.9 CHRONIC OBSTRUCTIVE PULMONARY DISEASE, U 07/30/2018 MARTIN ZHENG WOOD LAST MAKER Ot R93.8 ABNORMAL FINDINGS ON DIAGNOSTIC IMAGING 07/30/2018 MARTIN ZHENG WOOD LAST MAKER Ot Z72.0 TOBACCO USE 07/30/2018 MARTIN ZHENG APRN Ot E88.01 LFQRG-0-JIEICACCEGU DEFICIENCY 07/30/2018 MARTIN ZHENG WOOD LAST MAKER Ot J43.9 EMPHYSEMA, UNSPECIFIED 07/30/2018 MARTIN ZHENG WOOD LAST MAKER Ot R59.0 LOCALIZED ENLARGED LYMPH NODES 07/30/2018 MARTIN ZHENG APRN Ot Z72.0 TOBACCO USE 07/30/2018 DIOR MORGAN DO Ot E66.9 OBESITY, UNSPECIFIED 07/30/2018 DIOR MORGAN DO Ot G47.36 SLEEP RELATED HYPOVENTILATION IN CONDITI 07/30/2018 DIOR MORGAN DO Ot J44.9 CHRONIC OBSTRUCTIVE PULMONARY DISEASE, U 07/30/2018 DIOR MORGAN DO Ot R06.02 SHORTNESS OF BREATH 09/24/2018 MARTIN ZHENG APRN Ot J44.9 CHRONIC OBSTRUCTIVE PULMONARY DISEASE, U 10/06/2018 DIOR MORGAN DO Ot E88.01 DEVDG-1-HCUWCJYWGQD DEFICIENCY 10/06/2018 DIOR MORGAN DO Ot J44.9 CHRONIC OBSTRUCTIVE PULMONARY DISEASE, U 10/06/2018 DIOR MORGAN DO Ot Z72.0 TOBACCO USE 10/06/2018 MARTIN ZHENG WOOD LAST MAKER Ot J44.9 CHRONIC OBSTRUCTIVE PULMONARY DISEASE, U 10/06/2018 MARTIN ZHENG WOOD LAST MAKER Ot R93.8 ABNORMAL FINDINGS ON DIAGNOSTIC IMAGING 10/06/2018 MARTIN ZHENG APRN Ot Z72.0 TOBACCO USE 10/06/2018 MARTIN ZHENG WOOD LAST MAKER Ot E88.01 DUCFW-5-KPOAIXNNIOU DEFICIENCY 10/06/2018 MARTIN ZHENG WOOD LAST MAKER Ot J43.9 EMPHYSEMA, UNSPECIFIED 10/06/2018 MARTIN ZHENG WOOD LAST MAKER Ot R59.0 LOCALIZED ENLARGED LYMPH NODES 10/06/2018 MARTIN ZHENG WOOD LAST MAKER Ot Z72.0 TOBACCO USE 10/06/2018 DIOR MORGAN DO Ot E66.9 OBESITY, UNSPECIFIED 10/06/2018 DIOR MORGAN DO Ot G47.36 SLEEP RELATED HYPOVENTILATION IN CONDITI 10/06/2018 DIOR MORGAN DO Ot J44.9 CHRONIC OBSTRUCTIVE PULMONARY DISEASE, U 10/06/2018 DIOR MORGAN DO Ot R06.02 SHORTNESS OF BREATH 10/06/2018 MARTIN ZHENG WOOD LAST MAKER Ot J44.9 CHRONIC OBSTRUCTIVE PULMONARY DISEASE, U 10/07/2018 ARIAS DOBSON CHELLE B Ot Z01.818 ENCOUNTER FOR OTHER PREPROCEDURAL EXAMIN 10/07/2018 MARTIN ZHENG APRN Ot E66.9 OBESITY, UNSPECIFIED 10/07/2018 MARTIN ZHENG WOOD LAST MAKER Ot G47.10 HYPERSOMNIA, UNSPECIFIED 10/07/2018 MARTIN ZHENG APRN Ot G47.36 SLEEP RELATED HYPOVENTILATION IN CONDITI 10/07/2018 MARTIN ZHENG WOOD LAST MAKER Ot J30.9 ALLERGIC RHINITIS, UNSPECIFIED 10/07/2018 MARTIN ZHENG WOOD LAST MAKER Ot J44.9 CHRONIC OBSTRUCTIVE PULMONARY DISEASE, U 10/07/2018 MARTIN ZHENG WOOD LAST MAKER Ot J98.4 OTHER DISORDERS OF LUNG 10/07/2018 MARTIN ZHENG WOOD LAST MAKER Ot R06.02 SHORTNESS OF BREATH 10/07/2018 MARTIN ZHENG WOOD LAST MAKER Ot R09.02 HYPOXEMIA 10/07/2018 MARTIN ZHENG WOOD LAST MAKER Ot R91.8 OTHER NONSPECIFIC ABNORMAL FINDING OF [place] 10/07/2018 MARTIN ZHENG WOOD LAST MAKER Ot Z72.0 TOBACCO USE 10/07/2018 MARTIN ZHENG WOOD LAST MAKER Ot E66.9 OBESITY, UNSPECIFIED 10/07/2018 MARTIN ZHENG WOOD LAST MAKER Ot G47.10 HYPERSOMNIA, UNSPECIFIED 10/07/2018 MARTIN ZHENG WOOD LAST MAKER Ot G47.34 IDIO SLEEP RELATED NONOBSTRUCTIVE ALVEOL 10/07/2018 MARTIN ZHENG WOOD LAST MAKER Ot G47.36 SLEEP RELATED HYPOVENTILATION IN CONDITI 10/07/2018 MARTIN ZHENG WOOD LAST MAKER Ot J30.9 ALLERGIC RHINITIS, UNSPECIFIED 10/07/2018 MARTIN ZHENG APRN Ot J43.2 CENTRILOBULAR EMPHYSEMA 10/07/2018 MARTIN ZHENG APRN Ot J98.4 OTHER DISORDERS OF LUNG 10/07/2018 MARTIN ZHENG APRN Ot Z72.0 TOBACCO USE Procedures Code Description Performed By Performed On [id number] EXCISION OF STOMACH, ENDO , DIAGN 06/26/2018 [id number] EXCISION OF STOMACH, PYLORUS, ENDO, DIAG 06/26/2018 Results Test Result Range [id number] - 04/01/16 10:48 Serum or plasma urea nitrogen measurement (mass/volume) 14 mg/dL 7-18 Serum or plasma creatinine measurement (mass/volume) 1.06 mg/dL 0.60-1.30 Serum or plasma urea nitrogen/creatinine mass ratio 13 NRG Serum or plasma creatinine measurement with calculation of estimated glomerular filtration rate > NRG Complete blood count (CBC) with automated white blood cell (WBC) differential - 06/24/18 13:50 Blood leukocytes automated count (number/volume) 6.6 10*3/uL 4.3-11.0 Blood erythrocytes automated count (number/volume) 4.55 10*6/uL 4.35-5.85 Venous blood hemoglobin measurement (mass/volume) 13.7 g/dL 13.3-17.7 Blood hematocrit (volume fraction) 42 % 40-54 Automated erythrocyte mean corpuscular volume 92 [foz_us] 80-99 Automated erythrocyte mean corpuscular hemoglobin (mass per erythrocyte) 30 pg 25-34 Automated erythrocyte mean corpuscular hemoglobin concentration measurement ( mass/volume) 33 g/dL 32-36 Automated erythrocyte distribution width ratio 13.3 % 10.0-14.5 Automated blood platelet count (count/volume) 187 10*3/uL 130-400 Automated blood platelet mean volume measurement 11.0 [foz_us] 7.4-10.4 Automated blood neutrophils/100 leukocytes 57 % 42-75 Automated blood lymphocytes/100 leukocytes 28 % 12-44 Blood monocytes/100 leukocytes 10 % 0-12 Automated blood eosinophils/100 leukocytes 5 % 0-10 Automated blood basophils/100 leukocytes 1 % 0-10 Blood neutrophils automated count (number/volume) 3.7 10*3 1.8-7.8 Blood lymphocytes automated count (number/volume) 1.8 10*3 1.0-4.0 Blood monocytes automated count (number/volume) 0.6 10*3 0.0-1.0 Automated eosinophil count 0.3 10*3/uL 0.0-0.3 Automated blood basophil count (count/volume) 0.0 10*3/uL 0.0-0.1 Blood lactic acid measurement (moles/volume) - 06/24/18 13:50 Blood lactic acid measurement (moles/volume) 1.67 mmol/L 0.50-2.00 Comprehensive metabolic panel - 06/24/18 13:50 Serum or plasma sodium measurement (moles/volume) 138 mmol/L 135-145 Serum or plasma potassium measurement (moles/volume) 4.3 mmol/L 3.6-5.0 Serum or plasma chloride measurement (moles/volume) 104 mmol/L 98-107 Carbon dioxide 25 mmol/L 21-32 Serum or plasma anion gap determination (moles/volume) 9 mmol/L 5-14 Serum or plasma urea nitrogen measurement (mass/volume) 13 mg/dL 7-18 Serum or plasma creatinine measurement (mass/volume) 1.24 mg/dL 0.60-1.30 Serum or plasma urea nitrogen/creatinine mass ratio 10 NRG Serum or plasma creatinine measurement with calculation of estimated glomerular filtration rate 58 NRG Serum or plasma glucose measurement (mass/volume) 116 mg/dL 70-105 Serum or plasma calcium measurement (mass/volume) 9.1 mg/dL 8.5-10.1 Serum or plasma total bilirubin measurement (mass/volume) 0.4 mg/dL 0.1-1.0 Serum or plasma alkaline phosphatase measurement (enzymatic activity/volume) 76 U/L 40-136 Serum or plasma aspartate aminotransferase measurement (enzymatic activity/ volume) 35 U/L 5-34 Serum or plasma alanine aminotransferase measurement (enzymatic activity/volume ) 38 U/L 0-55 Serum or plasma protein measurement (mass/volume) 6.8 g/dL 6.4-8.2 Serum or plasma albumin measurement (mass/volume) 4.1 g/dL 3.2-4.5 CALCIUM CORRECTED 9.0 mg/dL 8.5-10.1 Serum or plasma lithium measurement (moles/volume) - 06/24/18 13:50 BNP level < pg/mL <100.0 Serum or plasma troponin i.cardiac measurement (mass/volume) - 06/24/18 13:50 Serum or plasma troponin i.cardiac measurement (mass/volume) < ng/ mL <0.028 Arterial blood gas measurement - 06/24/18 14:15 Blood pCO2 47 mm[Hg] 35-45 Blood pO2 87 mm[Hg] 79-93 Arterial blood bicarbonate measurement (moles/volume) 27 mmol/L 23-27 Arterial blood base excess by calculation 2.0 mmol/L -2.5 -2.5 Arterial blood oxygen saturation measurement 97 % 94-100 * Inhaled oxygen flow rate 2L NRG Arterial blood pH measurement with patient temperature correction 7.37 7.37-7.43 Arterial blood carbon dioxide, total measurement (moles/volume) 28.2 mmol/L 21.0-31.0 Body site LT RAD NRG Assessment of wrist artery patency prior to arterial puncture YES- POS NRG Setting of ventilation mode NO NRG Measurement of body temperature 98.6 NRG Serum or plasma troponin i.cardiac measurement (mass/volume) - 06/24/18 18:05 Serum or plasma troponin i.cardiac measurement (mass/volume) < ng/ mL <0.028 Sputum Gram stain - 06/24/18 18:51 Sputum Gram stain 06-25-2018, 1505. NRG Bacterial sputum culture - 06/24/18 18:51 QUANTITY OF GROWTH . NRG Bacterial sputum culture USUAL RESP NRG Serum or plasma troponin i.cardiac measurement (mass/volume) - 06/24/18 23:50 Serum or plasma troponin i.cardiac measurement (mass/volume) < ng/ mL <0.028 Complete blood count (CBC) with automated white blood cell (WBC) differential - 06/26/18 09:36 Blood leukocytes automated count (number/volume) 15.0 10*3/uL 4.3-11.0 Blood erythrocytes automated count (number/volume) 4.29 10*6/uL 4.35-5.85 Venous blood hemoglobin measurement (mass/volume) 13.0 g/dL 13.3-17.7 Blood hematocrit (volume fraction) 39 % 40-54 Automated erythrocyte mean corpuscular volume 92 [foz_us] 80-99 Automated erythrocyte mean corpuscular hemoglobin (mass per erythrocyte) 30 pg 25-34 Automated erythrocyte mean corpuscular hemoglobin concentration measurement ( mass/volume) 33 g/dL 32-36 Automated erythrocyte distribution width ratio 13.3 % 10.0-14.5 Automated blood platelet count (count/volume) 174 10*3/uL 130-400 Automated blood platelet mean volume measurement 10.7 [foz_us] 7.4-10.4 Automated blood neutrophils/100 leukocytes 92 % 42-75 Automated blood lymphocytes/100 leukocytes 5 % 12-44 Blood monocytes/100 leukocytes 3 % 0-12 Automated blood eosinophils/100 leukocytes 0 % 0-10 Automated blood basophils/100 leukocytes 0 % 0-10 Blood neutrophils automated count (number/volume) 13.8 10*3 1.8-7.8 Blood lymphocytes automated count (number/volume) 0.7 10*3 1.0-4.0 Blood monocytes automated count (number/volume) 0.5 10*3 0.0-1.0 Automated eosinophil count 0.0 10*3/uL 0.0-0.3 Automated blood basophil count (count/volume) 0.0 10*3/uL 0.0-0.1 Whole blood basic metabolic panel - 06/26/18 09:36 Serum or plasma sodium measurement (moles/volume) 143 mmol/L 135-145 Serum or plasma potassium measurement (moles/volume) 4.3 mmol/L 3.6-5.0 Serum or plasma chloride measurement (moles/volume) 110 mmol/L 98-107 Carbon dioxide 22 mmol/L 21-32 Serum or plasma anion gap determination (moles/volume) 11 mmol/L 5-14 Serum or plasma urea nitrogen measurement (mass/volume) 14 mg/dL 7-18 Serum or plasma creatinine measurement (mass/volume) 1.19 mg/dL 0.60-1.30 Serum or plasma urea nitrogen/creatinine mass ratio 12 NRG Serum or plasma creatinine measurement with calculation of estimated glomerular filtration rate > NRG Serum or plasma glucose measurement (mass/volume) 131 mg/dL 70-105 Serum or plasma calcium measurement (mass/volume) 8.9 mg/dL 8.5-10.1 Serum or plasma phosphate measurement (mass/volume) - 06/26/18 09:36 Serum or plasma phosphate measurement (mass/volume) 2.1 mg/dL 2.3-4.7 Magnesium - 06/26/18 09:36 Magnesium 1.9 mg/dL 1.8-2.4 Blood manual differential performed detection - 06/26/18 09:36 Blood monocytes/100 leukocytes 2 % NRG Manual blood segmented neutrophils/100 leukocytes 95 % NRG Blood band neutrophils/100 leukocytes 0 % NRG Manual blood lymphocytes/100 leukocytes 3 % NRG Manual eosinophils/100 leukocytes in nose 0 % NRG Manual blood basophils/100 leukocytes 0 % NRG Blood erythrocyte morphology finding identification NORMAL NRG Arterial blood gas measurement - 10/06/18 15:08 Blood pCO2 46 mm[Hg] 35-45 Blood pO2 64 mm[Hg] 79-93 Arterial blood bicarbonate measurement (moles/volume) 26 mmol/L 23-27 Arterial blood base excess by calculation 0.8 mmol/L -2.5 -2.5 Arterial blood oxygen saturation measurement 94 % 94-100 * Inhaled oxygen flow rate N/A NRG Arterial blood pH measurement with patient temperature correction 7.36 7.37-7.43 Arterial blood carbon dioxide, total measurement (moles/volume) 27.2 mmol/L 21.0-31.0 Body site RIGHT RADIAL NRG Assessment of wrist artery patency prior to arterial puncture POSITIVE NRG Setting of ventilation mode NO NRG Measurement of body temperature 97.7 NRG Encounters ACCT No. Visit Date/Time Discharge Status Pt. Type Provider Facility Loc./Unit Complaint [id number] 10/07/2018 14:58:00 10/07/2018 23:59:59 CLS Outpatient MARTIN ZHENG APRN [facility] RAD COPD, SOB [id number] 10/07/2018 09:37:00 10/07/2018 23:59:59 CLS Preadmit MARTIN ZHENG APRN [facility] SLEEP OBESITY,COPD,SOB, NOCTURNAL HYPOXEMIA [id number] 10/06/2018 14:32:00 10/06/2018 23:59:59 CLS Outpatient MARTIN ZHENG APRN [facility] RT E66.9 [id number] 10/06/2018 07:08:00 10/06/2018 16:00:00 DIS Outpatient CHELLE BIANCHI DO [facility] PREOP EGD [id number] 09/23/2018 08:43:00 09/23/2018 23:59:59 CLS Outpatient MARTIN ZHENG APRN [facility] RT COPD [id number] 06/24/2018 11:48:00 06/27/2018 13:00:00 DIS Inpatient PASTORA BROWNE DO [facility] 4TH COPD ACUTE EXAC;R/O PNEUMONIA [id number] 03/02/2018 00:08:00 03/02/2018 23:59:59 CLS Preadmit DIOR MORGAN DO [facility] PULM J44.9 [id number] 12/01/2017 08:00:00 03/01/2018 00:01:00 DIS Outpatient DIOR MORGAN DO [facility] PULM J44.9 [id number] 09/01/2017 09:11:00 11/30/2017 00:01:00 DIS Outpatient DIOR MORGAN DO [facility] PULM J44.9 [id number] 07/31/2017 11:33:00 07/31/2017 23:59:59 CLS Preadmit DIOR MORGAN DO [facility] RAD J44.9 [id number] 07/23/2017 10:51:00 07/23/2017 23:59:59 CLS Outpatient MARTIN ZHENG APRN [facility] RAD COPD,TOBACCO USER [id number] 04/01/2016 10:39:00 04/01/2016 23:59:59 CLS Outpatient MARTIN ZHENG APRN [facility] RAD COPD,TOBACCO USER, ABNORMAL CT [id number] 10/16/2015 21:29:00 10/17/2015 06:00:00 DIS Outpatient MARTIN ZHENG APRN [facility] SLEEP BERNADETTE,SNORING, HYPERSOMNIA,MORNING HEADACHE [id number] 09/22/2015 13:00:00 09/22/2015 23:59:59 CLS Outpatient DIOR MORGAN DO [facility] RAD SOA,DYSPNEA,COPD [id number] 10/12/2018 09:20:00 PEN Preadmit CHELLE BIANCHI DO [facility] ENDO STOMACH ULCERS
[2018-10-12] MEDS ORDERED: HURRICAINE EXT TUBE (BENZOCAINE) XX PRN (10:30)
[2018-10-12] MEDS ORDERED: proPOfol 200 MG/20 ML (DIPRIVAN) VIAL IV ONE (10:36)
[2018-10-12 10:53] VITALS: BP 145/92
--- NOTE | 2018-10-12 11:12 | Progress Note-Pre Operative ---
Pre-Operative Progress Note H&P Reviewed The H&P was reviewed, patient examined and no changes noted. Time Seen by Provider: 11:10 Date H&P Reviewed: Oct 12, 2018 Time H&P Reviewed: 11:11 Pre-Operative Diagnosis: Gastric Ulcers CHELLE BIANCHI DO Oct 12, 2018 11:12
--- NOTE | 2018-10-12 11:28 | Progress Note-Post Operative ---
Post-Operative Progess Note Surgeon (s)/Certified Ophthalmic Technician (s) Surgeon HCELLE BIANCHI DO Certified Ophthalmic Technician: none Pre-Operative Diagnosis Gastric Ulcers Post-Operative Diagnosis Hiatal hernia Esophagitis Procedure & Operative Findings Date of Procedure 10/12/18 Procedure Performed/Findings EGD with bx Anesthesia Type IV sedation by BLADE ALIGNER Estimated Blood Loss Estimated blood loss (mL): scant Specimens/Packing Specimens Removed GE jxn bx CHELLE BIANCHI DO Oct 12, 2018 11:28
--- NOTE | 2018-10-12 11:32 | Endoscopy Discharge Instruct ---
Endo Procedure/Findings Findings 1.: Hiatal Hernia Discharge Instructions - Activity: You might feel a little sleepy until tomorrow. This is due to the medicine you received to relax you. Until tomorrow, you should: NOT drive a car, operate machinery or power tools. NOT drink any alcoholic beverages. NOT make any important decisions or sign importortant papers. Do not return to work until tomorrow, unless otherwise instructed. Resume previous activities tomorrow. Diet: Start by taking liquids. If you tolerate liquids, advance to solid food. make an appointment for one week Instructions: 1.: EGD in 3 years Notify Physician - If you experience excessive bleeding, unusual abdominal pain, fever, or chest pain, contact your doctor immediately. Follow-Up: - I have received and understand the above instructions and will call my doctor if I have any further questions. Patient Signature Date Nurse Signature Other (Relationship) CHELLE BIANCHI DO Oct 12, 2018 11:32
[2018-10-12 11:50] VITALS: BP 113/66
[2018-10-12 12:25] VITALS: BP 127/69
[2018-10-12 12:30] VITALS: BP 127/69
--- NOTE | 2018-10-12 14:22 | Anesthesia-General Post-Op ---
MAC Patient Condition Mental Status/LOC: Same as Preop Cardiovascular: Satisfactory Nausea/Vomiting: Absent Respiratory: Satisfactory Pain: Controlled Complications: Absent Post Op Complications Complications None Follow Up Care/Instructions Patient Instructions None needed. Anesthesiology Discharge Order Discharge Order Patient is doing well, no complaints, stable vital signs, no apparent adverse anesthesia problems. No complications reported per nursing. BRENDA GORDON CRNA Oct 12, 2018 14:22
--- NOTE | 2018-10-12 19:35 | OPERATIVE REPORT ---
DATE OF SERVICE: 10/12/2018 PREOPERATIVE DIAGNOSIS: History of gastric and duodenal ulcers. POSTOPERATIVE DIAGNOSES: Hiatal hernia, esophagitis. No ulcers seen. PROCEDURE: EGD with biopsy. SURGEON: Miguel Aaron DO. MULTI TOWNSHIP ASSESSOR: None. ANESTHESIA: IV sedation by the INSURANCE COMMISSIONER. SPECIMEN: Biopsy from the GE junction. BLOOD LOSS: Scant. FLUIDS: Per anesthesia. POSTOPERATIVE CONDITION: Stable. INDICATION FOR PROCEDURE: The patient is a 67-year-old male with history of gastric and duodenal ulcers and some dysphagia and needed workup to make sure that ulcers are gone because he had stopped taking his proton pump inhibitors. FINDINGS: The patient did not have any gastric or duodenal ulcers. He did, however, have a hiatal hernia with some changes possibly at the GE junction, like esophagitis. Biopsy was done here. PROCEDURE NOTE: After informed consent was obtained, the patient was brought to the endoscopy suite, placed in the left lateral decubitus position and administered IV sedation by the INSURANCE COMMISSIONER who then monitored his vitals the entire time, heart rate, blood pressure and pulse ox and the scope was inserted down the mouth through the esophagus into the stomach, pushed into the duodenum, did not see any ulcers here, pulled back into the antrum, did not see any ulcers. Retroflexed the scope, saw small hiatal hernia, looked almost like a sliding hiatal hernia, did not see any ulcers in the body of the stomach either and then pulled the scope back up into the GE junction and saw some limited changes creeping up of the Z line, did biopsies here at the 12 o'clock, 4 o'clock and 8 o'clock position. These were then sent to pathology. Scant bleeding from here, I pulled back into the esophagus and did not see anything else in the esophagus and then pulled the scope out. The patient tolerated procedure. He was recovered in endoscopy suite. Job ID: [id number] DocumentID: [id number] Dictated Date: 10/12/2018 11:31:37 Nailer Machine Date: 10/12/2018 19:34:59 Dictated By: MIGUEL AARON DO
== END 2018-10-12 12:30 | disposition home or self-care (01) ==
LOC: ENDO 10:17
PROVIDERS: ATTEND Surgery
DX: K20.9 Esophagitis, unspecified (principal); K44.9 Diaphragmatic hernia without obstruction or gangrene; R09.02 Hypoxemia; G47.10 Hypersomnia, unspecified; J44.9 Chronic obstructive pulmonary disease, unspecified; E88.01 Alpha-1-antitrypsin deficiency; Z80.0 Family history of malignant neoplasm of digestive organs; F17.210 Nicotine dependence, cigarettes, uncomplicated; I25.10 Atherosclerotic heart disease of native coronary artery without angina pectoris; E66.9 Obesity, unspecified; Z79.899 Other long term (current) drug therapy; Z68.34 Body mass index [BMI] 34.0-34.9, adult

== ENCOUNTER 2018-10-29 19:50 | Outpatient (CLI) | payer MEDICARE, OTHER | END 2018-10-30 06:23 | disposition home or self-care (01) | LOC: SLEEP 19:50 | PROVIDERS: ATTEND Nurse Practitioner Family | DX: G47.10 Hypersomnia, unspecified (principal); G47.61 Periodic limb movement disorder; R09.02 Hypoxemia; E66.9 Obesity, unspecified; J44.9 Chronic obstructive pulmonary disease, unspecified; R06.02 Shortness of breath; R06.89 Other abnormalities of breathing; R91.8 Other nonspecific abnormal finding of lung field; J30.9 Allergic rhinitis, unspecified; J98.4 Other disorders of lung; G47.36 Sleep related hypoventilation in conditions classified elsewhere; Z72.0 Tobacco use | CPT/HCPCS: 95810 ==

== ENCOUNTER → 2019-06-24 | Outpatient (CLI) | payer MEDICARE, OTHER ==
[2019-06-24 15:28] LABS: BASOPHILS % (AUTO) 1 % (0-10); EOSINOPHILS # (AUTO) 0.4 10^3/uL (0.0-0.3); EOSINOPHILS % (AUTO) 6 % (0-10); HEMATOCRIT 44 % (40-54); HEMOGLOBIN 14.8 G/DL (13.3-17.7); LYMPHOCYTES # (AUTO) 2.2 X 10^3 (1.0-4.0); LYMPHOCYTES % (AUTO) 32 % (12-44); MEAN CORPUSCULAR HEMOGLOBIN 30 PG (25-34); MEAN CORPUSCULAR HGB CONC 33 G/DL (32-36); MEAN CORPUSCULAR VOLUME 90 FL (80-99); MEAN PLATELET VOLUME 10.7 FL (7.4-10.4); MONOCYTES # (AUTO) 0.6 X 10^3 (0.0-1.0); MONOCYTES % (AUTO) 8 % (0-12); NEUTROPHILS # (AUTO) 3.7 X 10^3 (1.8-7.8); NEUTROPHILS % (AUTO) 54 % (42-75); PLATELET COUNT 188 10^3/uL (130-400); RED CELL DISTRIBUTION WIDTH 13.5 % (10.0-14.5); WHITE BLOOD COUNT 6.9 10^3/uL (4.3-11.0)
== END ==
LOC: LAB 15:15
PROVIDERS: ATTEND Internal Medicine Critical Care Medicine
DX: J44.9 Chronic obstructive pulmonary disease, unspecified (principal)
CPT/HCPCS: 36415; 85025

== ENCOUNTER → 2019-11-03 | Outpatient (CLI) | payer MEDICARE, OTHER ==
--- NOTE | 2019-11-03 16:03 | Diagnostic Imaging Report ---
INDICATION: Screening for lung cancer, 59 pack year history of smoking, quit smoking one year ago. COMPARISON: 10/07/2018 and 07/23/2017. TECHNIQUE: Multiple contiguous axial CT images were obtained through the chest without the use of intravenous contrast using low-dose CT screening protocol. Sagittal and coronal reformatted images were reviewed. Auto Exposure Controls were utilized during the CT exam to meet ALARA standards for radiation dose reduction. FINDINGS: A few calcified mediastinal and hilar lymph nodes are present. No pathologically enlarged lymph nodes within the chest. Mild scattered vascular calcifications, including within the coronary arteries. No aneurysmal dilatation of the thoracic aorta. The heart is within normal limits in size. No pericardial effusion. No pleural effusion. No pneumothorax. Moderate background centrilobular emphysematous change is again noted. Scarring within the lingula. No suspicious pulmonary nodule or opacity. The trachea is patent. The minimally visualized upper abdomen is stable and unremarkable. No acute osseous abnormality with mild scattered osseous degenerative changes. IMPRESSION: 1. Moderate background emphysematous changes without suspicious pulmonary nodule or opacity. 2. No acute abnormality. 3. Evidence of chronic granulomatous disease. Lung RADS category 1S: Negative Modifier: S: Moderate background emphysematous changes. Follow-up: Continued annual screening with low dose CT of the chest in 12 months. Dictated by: Dictated on workstation # [id number]
== END ==
LOC: RAD 12:54
PROVIDERS: ATTEND Nurse Practitioner Family
DX: Z12.2 Encounter for screening for malignant neoplasm of respiratory organs (principal); F17.200 Nicotine dependence, unspecified, uncomplicated; J43.9 Emphysema, unspecified

== ENCOUNTER → 2020-11-03 | Outpatient (CLI) | payer MEDICARE, OTHER ==
[~2020-11-03] MED LIST changes: +ASPI-1238 PO; -ASPI-983 PO
--- NOTE | 2020-11-03 18:05 | Diagnostic Imaging Report ---
CT Lung Screening INDICATION: Former smoker, quit one year ago with a 189 pack year history. TECHNIQUE: Noncontrast, low-dose CT imaging performed according to lung cancer screening protocol. Auto Exposure Controls were utilized during the CT exam to meet ALARA standards for radiation dose reduction. COMPARISON: Low-dose CT 11/03/2019 FINDINGS: HEART/MEDIASTINUM: Heart size normal. Mildly prominent scattered coronary artery calcification. Thoracic aorta is normal in contour. Mild wall calcification. A few scattered small shotty mediastinal lymph nodes are present. Thyroid gland is enlarged right greater than left. LUNGS/MEASURED PULMONARY NODULES: Moderately advanced emphysematous changes about the lung parenchyma. No consolidating infiltrate. Likely minimal scarring within the lingula. Minimal likely secretions in particularly the left lower lobe bronchi, minimal nodularity along the right fissure plane. OTHER: None. IMPRESSION: 1. Advanced emphysematous change about the lung parenchyma. Calcified granulomas are present. No concerning pulmonary mass to suggest active lung neoplasm. LUNG-RADS CATEGORY: 1 LUNG SCREENING MANAGEMENT/RECOMMENDATIONS: Continued annual screening with low dose CT in 12 months. Dictated by: Dictated on workstation # [id number]
== END ==
LOC: RAD 14:49
PROVIDERS: ATTEND Nurse Practitioner Family
DX: Z12.2 Encounter for screening for malignant neoplasm of respiratory organs (principal); J43.9 Emphysema, unspecified; Z87.891 Personal history of nicotine dependence
CPT/HCPCS: 71271

== ENCOUNTER 2021-06-05 07:49 | Day surgery (SDC) | payer MEDICARE, OTHER ==
[~2021-06-05] VITALS: Ht 167.6 cm; Wt 100.6 kg
[2021-06-05] MEDS ORDERED: LIDOCAINE 1% INJ 20 ML 20 ML VIAL ONE (07:54)
[2021-06-05 08:02] VITALS: BP 148/88
--- NOTE | 2021-06-05 15:21 | OPERATIVE REPORT ---
DATE OF SERVICE: 06/05/2021 INDICATIONS: The patient is a 70-year-old gentleman who has palpitations and rare episodes of syncope or seizure. Implantable loop recorder implantation was advised. Informed consent was obtained. DESCRIPTION OF PROCEDURE: [facility] The left prepectoral area was prepared and draped in the usual sterile fashion. The tools provided with the Medtronic LINQ II devices were used to make a subcutaneous pocket anterior to the left fourth intercostal space into which the device was placed and the wound edges were closed using Dermabond and Steri-Strips. He tolerated the procedure well. The device is Medtronic LINQ II with serial #[id number]. Job ID: [id number] DocumentID: [id number] Dictated Date: 06/05/2021 10:05:38 Program Administrator Date: 06/05/2021 15:21:21 Dictated By: GERMAIN BULL MD, MA, FACP, FACC,
== END 2021-06-05 10:20 | disposition home or self-care (01) ==
LOC: CATH 07:49
PROVIDERS: ATTEND Internal Medicine Cardiovascular Disease
DX: R00.2 Palpitations (principal); R06.02 Shortness of breath; R03.0 Elevated blood-pressure reading, without diagnosis of hypertension; J44.9 Chronic obstructive pulmonary disease, unspecified; K21.9 Gastro-esophageal reflux disease without esophagitis; G47.33 Obstructive sleep apnea (adult) (pediatric); Z79.899 Other long term (current) drug therapy; Z87.891 Personal history of nicotine dependence
CPT/HCPCS: 33285; C1764

== ENCOUNTER → 2021-07-10 | Outpatient (CLI) | payer MEDICARE, OTHER ==
[~2021-07-10] MED LIST changes: +REGADENOSON 0.4 MG/5 ML SYR (LEXISCAN) IV ONE
[2021-07-10] MEDS: CATHETER FLUSH 10 ML SYR IV PRN ×2 (11:48→13:20)
[2021-07-10 13:16] VITALS: BP 126/85
--- NOTE | 2021-07-10 18:25 | STRESS TEST ---
DATE OF SERVICE: 07/10/2021 RESTING AND POST REGADENOSON TECHNETIUM-99M TETROFOSMIN SPECT CT IMAGING ORDERING PHYSICIAN: Dr. Rutherford. PRIMARY PHYSICIAN: BOOKER Rodriguez. CLINICAL DIAGNOSIS: Shortness of breath. Baseline images were carried out after injection of 9.74 mCi of technetium-99m Tetrofosmin. This was followed by 0.4 mg Regadenoson and 28.7 mCi of technetium-99m Tetrofosmin for stress imaging. The electrocardiogram showed sinus rhythm at baseline and it did not change significantly with the Regadenoson infusion. The patient tolerated the procedure well. Review of images at rest and following stress does not indicate any distinct perfusion defects consistent with significant myocardial ischemia or infarction. Gated images show normal global left ventricular systolic function with a normal regional wall motion. Left ventricular ejection fraction is calculated to be 69%. Left ventricular end-diastolic volume is 46 mL. TID is absent (0.99). CONCLUSIONS: 1. No evidence of significant myocardial ischemia or infarction. 2. Normal regional wall motion. 3. Normal global left ventricular systolic function with a calculated ejection fraction of 69%. Job ID: [id number] DocumentID: [id number] Dictated Date: 07/10/2021 16:02:36 Pc Tech Date: 07/10/2021 18:25:12 Dictated By: GERMAIN RUTHERFORD MD, MA, FACP, FACC,
== END ==
LOC: CARD 11:00
PROVIDERS: ATTEND Internal Medicine Cardiovascular Disease
DX: I51.7 Cardiomegaly (principal)
CPT/HCPCS: 78452; 93017; 93306; A9502

== ENCOUNTER 2021-09-20 05:32 | Outpatient (CLI) | payer MEDICARE, OTHER ==
[~2021-09-20] VITALS: Ht 167.6 cm; Wt 99.5 kg
[~2021-09-20 05:32] MED LIST changes: -REGADENOSON 0.4 MG/5 ML SYR (LEXISCAN) IV ONE
[2021-09-20] MEDS ORDERED: ALBU0.63 IH (08:23)
[2021-09-20] MEDS ORDERED: PANT40TA52 PO (08:23)
[2021-09-20] MEDS ORDERED: CALC600T91 PO (08:23)
[2021-09-20] MEDS ORDERED: ZINC50TA58 PO (08:23)
[2021-09-20] MEDS ORDERED: PRED5TAB PO (08:23)
[2021-09-20] MEDS ORDERED: MV-M1TAB20 PO (08:23)
[2021-09-20] MEDS ORDERED: TR1C15 TP (08:23)
[2021-09-20] MEDS ORDERED: MONT-40 PO (08:23)
== END 2021-09-20 11:15 | disposition home or self-care (01) ==
LOC: PREOP 05:32
PROVIDERS: ATTEND Surgery
DX: Z01.818 Encounter for other preprocedural examination (principal)

== ENCOUNTER 2021-10-01 07:56 | Day surgery (SDC) | payer MEDICARE, OTHER ==
[~2021-10-01] VITALS: Ht 167.6 cm; Wt 99.5 kg
[~2021-10-01 07:56] MED LIST changes: +ALBU0.63 IH; +CALC600T91 PO; +MONT-40 PO; +MV-M1TAB20 PO; +PANT40TA52 PO; +PRED5TAB PO; +TR1C15 TP; +ZINC50TA58 PO
[2021-10-01] MEDS ORDERED: LACTATED RINGERS 1,000 ML IV STA (07:59)
[2021-10-01] MEDS ORDERED: HURRICAINE EXT TUBE (BENZOCAINE) XX PRN (08:00)
[2021-10-01] MEDS ORDERED: LACTATED RINGERS 1,000 ML IV ONE (08:06)
[2021-10-01 08:15] VITALS: BP 165/83
[2021-10-01] MEDS ORDERED: PROPOFOL INJECTION 50 ML IV ONE (08:22)
[2021-10-01 09:25] VITALS: BP 117/59
[2021-10-01 09:30] VITALS: BP 104/71
--- NOTE | 2021-10-01 09:30 | Progress Note-Post Operative ---
Post-Operative Progess Note Surgeon (s)/Statement Distribution Clerk (s) Surgeon CHELLE BIANCHI DO Statement Distribution Clerk: Ed Matamoros, MSIII Pre-Operative Diagnosis Chronic Gastritis, Screening colonoscopy Post-Operative Diagnosis Esophagitis small hiatal hernia polyps diverticula int hemorrhoids Procedure & Operative Findings Date of Procedure 10/01/21 Procedure Performed/Findings EGD with bx Colon with snare polypectomy PROCEDURE NOTE: After informed consent was obtained, the patient was brought to the endoscopy suite, placed in bed in left lateral decubitus position. He was administered IV sedation by the VICE PRESIDENT SALES who then monitored vitals the entire time, heart rate, blood pressure and pulse ox and the scope was inserted down the mouth through the esophagus into the stomach. On the way down, noted some mild esophagitis, took a picture, pushed into the stomach, pushed past the antrum into the duodenum. Duodenum looked good. Pulled back and did a biopsy of antrum, then retroflexed the scope, saw small hiatal hernia, took a picture of this and then pulled the scope into the GE junction, took another picture of the esophagitis and then did a biopsy of the GE junction. Pushed the scope back into the stomach, suctioned all the air out of the stomach. At this point pulled the scope up the esophagus and out the mouth. Switched camera, switched gloves, went down below to start the colonoscopy. Pushed all the way into about 140 cm to get all the way to cecum, took a picture of the appendiceal orifice, noted the ileocecal valve and then slowly withdrew the scope, insufflating to look circumferentially at the ley starting in the cecum, up the ascending colon to the hepatic flexure, then down the transverse colon. Here I found two polyps and removed them by snare. Continued to the splenic flexure and into the descending colon; where I found two more polyps, also removed by snare. Then down into the sigmoid colon and I found another polyp which I then removed. Finally into the rectum (saw small possibly hyperplastic polyps that I elected to leave alone) and retroflexed in the rectal vault, saw some minimal internal hemorrhoids and took a picture of this. The patient tolerated the procedure and he recovered in the endoscopy suite. Anesthesia Type IV sedation by anesthesia Estimated Blood Loss Estimated blood loss (mL): scant Specimens/Packing Specimens Removed antral bx GE jxn bx transverse colon polyp x 2 desc colon polyp x 2 sigmoid polyp CHELLE BIANCIH DO Oct 01, 2021 09:30
--- NOTE | 2021-10-01 09:31 | Endoscopy Discharge Instruct ---
Endo Procedure/Findings Findings 1.: Other Findings (Esophagitis) 2.: Hiatal Hernia 3.: Polyp 4.: Diverticulosis, Internal Hemorrhoids Discharge Instructions - Activity: You might feel a little sleepy until tomorrow. This is due to the medicine you received to relax you. Until tomorrow, you should: NOT drive a car, operate machinery or power tools. NOT drink any alcoholic beverages. NOT make any important decisions or sign importortant papers. Do not return to work until tomorrow, unless otherwise instructed. Resume previous activities tomorrow. Diet: Start by taking liquids. If you tolerate liquids, advance to solid food. 1.: Colonscopy in 3 years 2.: EGD in 3 years Notify Physician - If you experience excessive bleeding, unusual abdominal pain, fever, or chest pain, contact your doctor immediately. CHELLE BIANCHI DO Oct 01, 2021 09:31
[2021-10-01 09:53] VITALS: BP 110/68
--- NOTE | 2021-10-01 14:12 | Anesthesia-General Post-Op ---
MAC Patient Condition Mental Status/LOC: Same as Preop Cardiovascular: Satisfactory Nausea/Vomiting: Absent Respiratory: Satisfactory Pain: Controlled Complications: Absent Post Op Complications Complications None Follow Up Care/Instructions Patient Instructions None needed. Anesthesiology Discharge Order Discharge Order Patient was seen this morning after the procedure and he was doing well, no complaints, stable vital signs, no apparent adverse anesthesia problems. ADELE LOCKHART DO Oct 01, 2021 14:12
== END 2021-10-01 10:09 | disposition home or self-care (01) ==
LOC: ENDO 07:56
PROVIDERS: ATTEND Surgery
DX: Z12.11 Encounter for screening for malignant neoplasm of colon (principal); D12.3 Benign neoplasm of transverse colon; D12.4 Benign neoplasm of descending colon; K29.50 Unspecified chronic gastritis without bleeding; K20.90 Esophagitis, unspecified without bleeding; K63.5 Polyp of colon; K44.9 Diaphragmatic hernia without obstruction or gangrene; K57.30 Diverticulosis of large intestine without perforation or abscess without bleeding; K64.8 Other hemorrhoids; Z87.891 Personal history of nicotine dependence

== ENCOUNTER → 2022-04-02 | Outpatient (CLI) | payer MEDICARE, OTHER | LOC: RT 10:09 | PROVIDERS: ATTEND Internal Medicine Critical Care Medicine | DX: Z12.2 Encounter for screening for malignant neoplasm of respiratory organs (principal); J44.9 Chronic obstructive pulmonary disease, unspecified; J84.10 Pulmonary fibrosis, unspecified; Z87.891 Personal history of nicotine dependence | CPT/HCPCS: 94621 ==